=== PATIENT | female | born 1950 | race Hispanic/Latino ===

== ENCOUNTER 2017-08-24 19:10 | Inpatient (IN) | payer MEDICARE ==
[2017-08-24 20:02] LABS: BASO # 0.1 K/uL (0.0-0.2); BASO % 1.2 % (0.0-2.0); EOS # 0.5 K/uL (0.0-0.7); EOS % 4.3 % (0.0-4.0); HEMOGLOBIN 12.2 g/dL (11.0-16.0); LYMPH # 3.8 K/uL (1.0-4.3); LYMPH % 30.4 % (20.0-40.0); MEAN CELL VOLUME 84.8 fL (81.0-99.0); MEAN CORPUSCULAR HEMOGLOBIN 28.3 pg (27.0-31.0); MEAN CORPUSCULAR HGB CONC 33.4 g/dL (33.0-37.0); MEAN PLATELET VOLUME 7.6 fL (7.2-11.7); MONO # 1.1 K/uL (0.0-0.8); MONO % 8.5 % (0.0-10.0); NEUT % 55.6 % (50.0-75.0); RBC 4.3 Mil/uL (3.80-5.20); WHITE BLOOD COUNT 12.5 K/uL (4.8-10.8)
--- NOTE | 2017-08-24 20:03 | C.PDOC ---
History Of Present Illness Patient is a 67 y/o female who presents to the ED with a complaint of left leg swelling since Friday. Patient denies trauma, fever, CP, or SOB. Admits to recent travel this month to [place]. No other physical complaints at this time. Time Seen by Provider: 08/24/17 19:32 Chief Complaint (Nursing): Lower Extremity Problem/Injury History Per: Patient History/Exam Limitations: no limitations Onset/Duration Of Symptoms: Days (since Friday) Current Symptoms Are (Timing): Still Present Recent travel outside of the [place]: Yes ([place] earlier this month) Past Medical History Reviewed: Historical Data, Nursing Documentation, Vital Signs Vital Signs: Last Vital Signs Temp 98.4 F 08/28/17 12:00 Pulse 77 08/28/17 15:21 Resp 12 08/28/17 15:21 BP 149/49 L 08/28/17 15:21 Pulse Ox 96 08/28/17 12:00 - Medical History PMH: No Chronic Diseases Surgical History: No Surg Hx Family History: States: No Known Family Hx - Social History Hx Tobacco Use: No Hx Alcohol Use: No Hx Substance Use: No - Immunization History Hx Tetanus Toxoid Vaccination: No Hx Influenza Vaccination: No Hx Pneumococcal Vaccination: No Review Of Systems Except As Marked, All Systems Reviewed And Found Negative. Cardiovascular: Positive for: Edema (left leg swelling) Physical Exam - Physical Exam Appears: Well, Non-toxic, No Acute Distress Skin: Normal Color, Warm, Dry Head: Atraumatic, Normacephalic Oral Mucosa: Moist Cardiovascular: Rhythm Regular, No Murmur Respiratory: Normal Breath Sounds, No Rales, No Rhonchi, No Wheezing Gastrointestinal/Abdominal: Soft, No Tenderness Extremity: Swelling (left leg swelling) Neurological/Psych: Oriented x3, Normal Speech, Normal Cognition ED Course And Treatment - Laboratory Results Result Diagrams: 08/28/17 06:36 08/28/17 06:36 O2 Sat by Pulse Oximetry: 98 (room air ) Pulse Ox Interpretation: Normal Medical Decision Making Medical Decision Making: Plan: * blood work Patient admitted to hospitalist Dr. Concepcion at 9:40pm. Disposition - Disposition Disposition: HOSPITALIZED Disposition Time: 09:00 Condition: STABLE - Clinical Impression Clinical Impression: Left leg DVT - Scribe Statement The provider has reviewed the documentation as recorded by the Scribe Joleen Aguila All medical record entries made by the Zarinaibe were at my direction and personally dictated by me. I have reviewed the chart and agree that the record accurately reflects my personal performance of the history, physical exam, medical decision making, and the department course for this patient. I have also personally directed, reviewed, and agree with the discharge instructions and disposition. Decision To Admit - Pt Status Changed To: Hospital Disposition Of: Inpatient - Admit Certification Admit to Inpatient:: After my assessment, the patient will require hospitalization for at least two midnights. This is because of the severity of symptoms shown, intensity of services needed, and/or the medical risk in this patient being treated as an outpatient. - InPatient: Physician Admission Certification: I certify that this patient requires 2 or more midnights of care for the following reason:: large dvt needs thrombolysis - . Bed Request Type: Regular Admitting Physician: Denilson Concepcion Patient Diagnosis: Deep venous thrombosis of lower extremity, Left leg DVT
[2017-08-24 20:17] LABS: ALBUMIN 3.4 g/dL (3.5-5.0); ALT/SGPT 17 U/L (9-52); AST/SGOT 23 U/L (14-36); BLOOD UREA NITROGEN 24 mg/dL (7-17); CALCIUM 8.2 mg/dl (8.6-10.4); GFR AFRICAN-AMERICAN > 60; GFR NON-AFRICAN AMERICAN > 60
[2017-08-24 20:19] LABS: ALB/GLOB RATIO 1.1 (1.0-2.1)
[2017-08-24 20:28] LABS: PROTHROMBIN TIME 11.6 SECONDS (9.7-12.2)
[2017-08-24] MEDS ORDERED: Enoxaparin 150 mg Syringe SC STA (21:29)
[2017-08-24] MEDS ORDERED: cefTRIAXone 2 GM in Sodium Chloride 0.9% 100 ML IVPB STA (21:36)
[2017-08-24] MEDS ORDERED: Enoxaparin 100 mg Syringe ONE (22:01)
[2017-08-24] MEDS ORDERED: Enoxaparin 30 mg Syringe ONE (22:02)
--- NOTE | 2017-08-24 22:03 | CP.PCM.HP ---
<Dora Johnson - Last Filed: 08/25/17 04:02> History of Present Illness - History of Present Illness History of Present Illness: Medicine Note for Hospital Service CC: left leg pain x 1 week HPI: 67 yo Female with no significant PMHx presents to the ED with left leg pain x 1 week. Patient reports traveling to [place] August 18 and returned the . 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 She started to experience the left leg pain a day or so after her initial flight. The redness and swelling of her leg started to increase the up the leg, and became worse when she returned from [place]. She would take motrin as needed for pain, but the swelling and redness of her leg did not resolve. Denied fever, chills, headache, chest pain, SOB, abdominal pain, n/v/d/c, or urinary symptoms. 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 FHx: Brother - CAD, Mother - of colon cancer, father - bone cancer PMD: has not seen one >30 years Present on Admission - Present on Admission Any Indicators Present on Admission: No History of DVT/PE: No Past Patient History - Past Social History Smoking Status: Light Smoker < 10 Cigarettes Daily - PSYCHIATRIC Hx Substance Use: No - ANESTHESIA Hx Anesthesia: No Meds Allergies/Adverse Reactions: Allergies Allergy/AdvReac Type Severity Reaction Status Date / Time No Known Allergies Allergy Unverified 08/24/17 19:19 Physical Exam - Constitutional Appears: No Acute Distress - Head Exam Head Exam: NORMAL INSPECTION, NORMOCEPHALIC - Eye Exam Eye Exam: EOMI, Normal appearance, PERRL Pupil Exam: NORMAL ACCOMODATION - ENT Exam ENT Exam: Mucous Membranes Moist, Normal Exam - Respiratory Exam Respiratory Exam: Clear to Auscultation Bilateral, NORMAL BREATHING PATTERN. absent: Decreased Breath Sounds, Wheezes - Cardiovascular Exam Cardiovascular Exam: Tachycardia - GI/Abdominal Exam GI & Abdominal Exam: Normal Bowel Sounds, Soft. absent: Distended, Tenderness - Extremities Exam Extremities exam: Positive for: calf tenderness, pedal edema, tenderness (TTP left calf ), pedal pulses present Additional comments: left leg erythema all up until the inguinal fold medial > lateral, +1 pitting edema Results - Vital Signs Recent Vital Signs: Last Vital Signs Temp 98.1 F 08/24/17 19:16 Pulse 109 H 08/24/17 19:16 Resp 20 08/24/17 19:16 BP 152/90 H 08/24/17 19:16 Pulse Ox 98 08/24/17 21:40 - Labs Result Diagrams: 08/24/17 19:51 08/24/17 19:51 Labs: Laboratory Results - last 24 hr 08/24/17 08/24/17 08/24/17 19:51 19:51 19:51 WBC 12.5 H RBC 4.30 Hgb 12.2 Hct 36.5 MCV 84.8 MCH 28.3 MCHC 33.4 RDW 14.0 Plt Count 325 MPV 7.6 Neut % (Auto) 55.6 Lymph % (Auto) 30.4 [place] % (Auto) 8.5 Eos % (Auto) 4.3 H Baso % (Auto) 1.2 Neut # 7.0 Lymph # 3.8 [place] # 1.1 H Eos # 0.5 Baso # 0.1 PT 11.6 INR 1.0 APTT 27 D-Dimer, Quantitative 6329 H Sodium 135 Potassium 4.3 Chloride 98 Carbon Dioxide 29 Anion Gap 11 BUN 24 H Creatinine 0.7 Est GFR ( Amer) > 60 Est GFR (Non-Af Amer) > 60 Random Glucose 124 H Calcium 8.2 L Total Bilirubin 0.7 AST 23 ALT 17 Alkaline Phosphatase 64 Total Protein 6.6 Albumin 3.4 L Globulin 3.2 Albumin/Globulin Ratio 1.1 Assessment & Plan - Assessment and Plan (Free Text) Assessment: 67 yo Female with no significant PMHx presents to the ED with left leg pain x 1 week. Found to have a left leg DVT and Left Pulm artery PE. Plan: Left LLE DVT Cellulitis - less likely US performed with ED US - seen by ER doc. Pending LE Dopplers D -dimer: 6329 IR Consulted for EKOS procedure Received therapeutic lovenox that was switched to a Heparin Drip due to newly diagnosed PE Left Pulmonary Artery PE D -dimer: 6329 CTA: Emboli in lower lobe branches of the left pulmonary artery. There is a large heterogeneous partially calcified mass in the right superior mediastinum measuring approximately 4.2 x 7.7 cm in axial dimensions possibly thyroid in origin. This may be a known finding. There are prominent lymph nodes in the anterior mediastinum measuring up to 3cm in diameter. Started on Heparin Drip Mediastinum Mass Concern for Malignancy CTA: There is a large heterogeneous partially calcified mass in the right superior mediastinum measuring approximately 4.2 x 7.7 cm in axial dimensions possibly thyroid in origin. This may be a known finding. There are prominent lymph nodes in the anterior mediastinum measuring up to 3cm in diameter. IR Consulted for possible biopsy Prophylactic Measures GI PPX: Pepcid BID DVT PPX: SCDs c/i, on Heparin drip DW Dr. Concepcion, Dora Johnson DO, PGY-1 <Denilson Concepcion P - Last Filed: 08/25/17 06:59> Results - Vital Signs Recent Vital Signs: Last Vital Signs Temp 97.9 F 08/25/17 04:30 Pulse 81 08/25/17 04:30 Resp 20 08/25/17 04:30 BP 110/66 08/25/17 04:30 Pulse Ox 94 L 08/25/17 04:30 - Labs Result Diagrams: 08/24/17 19:51 08/24/17 19:51 Labs: Laboratory Results - last 24 hr 08/24/17 08/24/17 08/24/17 19:51 19:51 19:51 WBC 12.5 H RBC 4.30 Hgb 12.2 Hct 36.5 MCV 84.8 MCH 28.3 MCHC 33.4 RDW 14.0 Plt Count 325 MPV 7.6 Neut % (Auto) 55.6 Lymph % (Auto) 30.4 [place] % (Auto) 8.5 Eos % (Auto) 4.3 H Baso % (Auto) 1.2 Neut # 7.0 Lymph # 3.8 [place] # 1.1 H Eos # 0.5 Baso # 0.1 PT 11.6 INR 1.0 APTT 27 D-Dimer, Quantitative 6329 H Sodium 135 Potassium 4.3 Chloride 98 Carbon Dioxide 29 Anion Gap 11 BUN 24 H Creatinine 0.7 Est GFR ( Amer) > 60 Est GFR (Non-Af Amer) > 60 Random Glucose 124 H Calcium 8.2 L Total Bilirubin 0.7 AST 23 ALT 17 Alkaline Phosphatase 64 Total Protein 6.6 Albumin 3.4 L Globulin 3.2 Albumin/Globulin Ratio 1.1 Attending/Attestation - Attestation I have personally seen and examined this patient.: Yes I have fully participated in the care of the patient.: Yes I have reviewed all pertinent clinical information: Yes Notes (Text): Assessment * Presentation due to left leg swelling, pain, sob, with h/o 3-4 hrs of flight, preliminary eval in ER with USG consistent with common femoral clot, but also suspicious from clinical history * W/u for sob showed left segmental branches pe, also 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 * Hematology Oncology consult * Counselled about tobacco abuse * See orders for detail.
[2017-08-24] MEDS ORDERED: Vancomycin 1 gm/NS 200 ml 1 GM/200 ML BAG IVPB SCH (22:15)
[2017-08-25] MEDS ORDERED: Iodixanol 320 mg/ml 150 ml Bottle IV ONE (00:24)
--- NOTE | 2017-08-25 01:17 | CT ---
EXAM: CT Angiography Chest With Intravenous Contrast EXAM DATE/TIME: 08/24/2017 11:30 PM CLINICAL HISTORY: 67 years old, female; Signs and symptoms; Other: Dvt; Additional info: Dvt, R/O pe TECHNIQUE: Axial computed tomographic angiography images of the chest with intravenous contrast using pulmonary embolism protocol. All CT scans at this facility use one or more dose reduction techniques, viz.: automated exposure control; ma/kV adjustment per patient size (including targeted exams where dose is matched to indication; i.e. head); or iterative reconstruction technique. MIP reconstructed images were created and reviewed. Coronal and sagittal reformatted images were created and reviewed. CONTRAST: 100 mL of [id number] administered intravenously. COMPARISON: No relevant prior studies available. FINDINGS: There are emboli in lower lobe branches of the left pulmonary artery images 123 -130 series 2, coronal images 90 through 92. There is a large heterogeneous partially calcified mass in the right superior mediastinum measuring approximately 4.2 x 7.7 cm in axial dimensions possibly thyroid in origin. This may be a known finding. I have requested prior images for correlation if available. There are prominent lymph nodes in the anterior mediastinum measuring up to 3 cm in diameter. No aortic dissection or aneurysm. No pleural or pericardial effussions. No pulmonary consolidation. Anterior osteophyte formation is present in the vertebral body. Chronic appearing deformities of the right posterior fourth through eighth ribs. IMPRESSION: Emboli in lower lobe branches of the left pulmonary artery. Large anterior superior mediastinal mass as discussed above.
--- NOTE | 2017-08-25 01:31 | CT ---
EXAM: CT Abdomen and Pelvis With Intravenous Contrast EXAM DATE/TIME: 08/24/2017 11:30 PM CLINICAL HISTORY: 67 years old, female; Signs and symptoms; Mass, lump, or swelling and other: Suspected dvt; Generalized TECHNIQUE: Axial computed tomography images of the abdomen and pelvis with intravenous contrast. All CT scans at this facility use one or more dose reduction techniques, viz.: automated exposure control; ma/kV adjustment per patient size (including targeted exams where dose is matched to indication; i.e. head); or iterative reconstruction technique. Coronal and sagittal reformatted images were created and reviewed. CONTRAST: 100 mL of [id number] administered intravenously. COMPARISON: No relevant prior studies available. FINDINGS: The liver is prominent. Please see chest CT report for description of left hepatic lesion for which further evaluation is warranted (abdomen pelvis images are submitted in the delayed phase w contrast in the renal collecting system whereas the chest CT images are in the arterial phase). Cholelithiasis without evidence of cholecystitis. The spleen and pancreas are grossly normal. There is a focal saccular dilatation of the infrarenal abdominal aorta measuring 3.7 cm in diameter. No periaortic fluid. Atherosclerotic calcifications are present. There is subcutaneous edema in the left posterior-lateral pelvis with overlying skin thickening. The edema extends inferiorly to the left lower extremity. Collateral vessels and lymph nodes are noted in the left groin. The patient reportedly has a known DVT. No prior imaging was provided for correlation or for confirmation of this finding. There is suggestion of faint low attenuation in the distal superficial femoral vein possibly representing the patient's known thrombus. The bowel appears normal Partially calcified uterine fibroid. IMPRESSION: Cholelithiasis. Please see chest CT report for discussion of left hepatic lesion. Infrarenal aortic aneurysm without periaortic fluid. Subcutaneous edema extending from the left flank region down to the distal thigh likely related to the patient's known DVT. Collateral vasculature and lymph nodes in the left groin.
[2017-08-25] MEDS ORDERED: Heparin25000 units/250ml 1/2NS 25,000 UNITS/250 ML BAG IV PRN ×3 (07:00→16:33)
[2017-08-25 08:02] LABS: BASO # 0.1 K/uL (0.0-0.2); BASO % 0.8 % (0.0-2.0); EOS # 0.5 K/uL (0.0-0.7); EOS % 4.4 % (0.0-4.0); HEMOGLOBIN 11.4 g/dL (11.0-16.0); LYMPH # 3.2 K/uL (1.0-4.3); LYMPH % 30.6 % (20.0-40.0); MEAN CELL VOLUME 84.8 fL (81.0-99.0); MEAN CORPUSCULAR HEMOGLOBIN 29.3 pg (27.0-31.0); MEAN CORPUSCULAR HGB CONC 34.5 g/dL (33.0-37.0); MEAN PLATELET VOLUME 7.9 fL (7.2-11.7); MONO % 9.5 % (0.0-10.0); NEUT # 5.8 K/uL (1.8-7.0); NEUT % 54.7 % (50.0-75.0); RBC 3.9 Mil/uL (3.80-5.20); RED CELL DISTRIBUTION WIDTH 13.7 % (11.5-14.5); WHITE BLOOD COUNT 10.6 K/uL (4.8-10.8)
[2017-08-25 08:21] LABS: HDL CHOLESTEROL 26 mg/dL (30-70)
[2017-08-25 08:32] LABS: LDL CHOLESTEROL 68 mg/dL (0-129)
--- NOTE | 2017-08-25 08:58 | CP.PCM.PN ---
<Veronica Linda JeriZo - Last Filed: 08/25/17 15:04> Subjective - Date & Time of Evaluation Date of Evaluation: 08/25/17 Time of Evaluation: 07:00 - Subjective Subjective: Medicine Progress Note: Patient was seen and examined at bedside in the AM. Patient states she was feeling a bit nervous to everything that was happening as she does not like being in the hospital. She states she has a chronic cough because she is smoker and smokes about 6 cigarettes per day. She states since her admission she has not had the feeling to smoke and she would like to try and continue this whenever she is discharged as well. She denies chest pain, difficulty breathing, palpitations, leg pain, fever, nausea, vomiting, diarrhea or constipation. Objective - Vital Signs/Intake and Output Vital Signs (last 24 hours): Temp Pulse Resp BP Pulse Ox 97.9 F 80 20 110/66 94 L 08/25/17 04:30 08/25/17 08:30 08/25/17 04:30 08/25/17 04:30 08/25/17 04:30 - Medications Medications: Current Medications Famotidine (Pepcid) 20 mg PO BID [facility]ENN[facility]ER Vancomycin/Sodium Chloride (Vancomycin 1 Gm/Ns 200 Ml) 1 gm in 200 mls @ 200 mls/hr IVPB STAT JENNIFER Stop: 08/29/17 22:01 Last Admin: 08/25/17 02:11 Dose: 200 mls/hr Heparin Sodium/Sodium Chloride (Heparin 16198 Units/250ml 1/2 Normal Saline) 25 ,000 units in 250 mls @ 19.187 mls/hr IV .Q13H2M PRN; Protocol; 18 UNITS/KG/HR PRN Reason: PROTOCOL Last Admin: 08/25/17 03:56 Dose: 18 units/kg/hr, 19.187 mls/hr Pneumococcal Polyvalent Vaccine (Pneumovax 23 Vaccine) 0.5 ml IM .ONCE ONE Stop: 08/28/17 10:01 - Labs Labs: 08/25/17 07:50 08/24/17 19:51 PT 11.6 SECONDS (9.7-12.2) 08/24/17 19:51 INR 1.0 08/24/17 19:51 APTT 27 SECONDS (21-34) 08/24/17 19:51 - Constitutional Appears: No Acute Distress - Head Exam Head Exam: ATRAUMATIC, NORMAL INSPECTION - Eye Exam Eye Exam: EOMI, Normal appearance - ENT Exam ENT Exam: Mucous Membranes Moist - Respiratory Exam Respiratory Exam: Clear to Ausculation Bilateral, NORMAL BREATHING PATTERN - Cardiovascular Exam Cardiovascular Exam: REGULAR RHYTHM, +S1, +S2 - GI/Abdominal Exam GI & Abdominal Exam: Soft, Normal Bowel Sounds. absent: Tenderness - Extremities Exam Extremities Exam: Pedal Edema. absent: Calf Tenderness, Tenderness - Neurological Exam Neurological Exam: Alert, Awake, Oriented x3 - Psychiatric Exam Psychiatric exam: Anxious - Skin Skin Exam: Dry, Intact, Normal Color, Warm Assessment and Plan - Assessment and Plan (Free Text) Assessment: 67 yo Female with no significant PMHx presents to the ED with left leg pain x 1 week. Found to have a left leg DVT and Left Pulm artery PE. 1.) Left LLE DVT - Bilateral Lower Extremity Doppler: Right: No evidence of deep or superficial vein thrombosis of the right common femoral, femoral, popliteal and great saphenous veins. Left: Totally occluding acute deep vein thrombosis of the left common femoral, extending into the saphenofemoral junction with severe reduction of venous return. Totally occluding acute deep vein thrombosis of the left proximal femoral, popliteal and gastrocnemius veins. Superficial phlebitis of the left upper great saphenous vein. - D -dimer: 6329 - IR Consulted: Dr. Hunt --> help appreciated - EKOS lysis procedure 08/25/17 - Placement of infrarenal IVC filter 08/25/17 - Received therapeutic lovenox that was then switched to a Heparin Drip due to newly diagnosed PE 2.) Left Pulmonary Artery PE - D -dimer: 6329 - CTA: Emboli in lower lobe branches of the left pulmonary artery. There is a large heterogeneous partially calcified mass in the right superior mediastinum measuring approximately 4.2 x 7.7 cm in axial dimensions possibly thyroid in origin. This may be a known finding. There are prominent lymph nodes in the anterior mediastinum measuring up to 3cm in diameter. - Started on Heparin Drip 3.) Mediastinum Mass Concern for Malignancy - CTA: There is a large heterogeneous partially calcified mass in the right superior mediastinum measuring approximately 4.2 x 7.7 cm in axial dimensions possibly thyroid in origin. This may be a known finding. There are prominent lymph nodes in the anterior mediastinum measuring up to 3cm in diameter. - Neck Soft Tissue X-ray: unremarkable radiographs of the soft tissues of the neck - IR Consulted: Dr. Hunt --> help appreciated - For possible biopsy 4.) Prophylaxis - GI PPX: Pepcid BID - DVT PPX: SCDs c/i, on Heparin drip - Patient was transferred to ICU for observation s/p EKOS procedure Case discussed with Dr. David Linda PGY-1 <Carlos Hernandez - Last Filed: 08/25/17 18:53> Objective - Vital Signs/Intake and Output Vital Signs (last 24 hours): Temp Pulse Resp BP Pulse Ox 98.3 F 86 14 147/75 93 L 08/25/17 15:00 08/25/17 15:00 08/25/17 15:00 08/25/17 15:00 08/25/17 07:30 Intake and Output: 08/25/17 08/25/17 06:59 18:59 Intake Total 804 Output Total 415 Balance 389 - Medications Medications: Current Medications Famotidine (Pepcid) 20 mg PO BID [facility] Last Admin: 08/25/17 18:47 Dose: 20 mg Vancomycin/Sodium Chloride (Vancomycin 1 Gm/Ns 200 Ml) 1 gm in 200 mls @ 200 mls/hr IVPB STAT JENNIFER Stop: 08/29/17 22:01 Last Admin: 08/25/17 02:11 Dose: 200 mls/hr Alteplase, Recombinant 10 mg/ (Sodium Chloride) 250 mls @ 25 mls/hr IV ONCE ONE Stop: 08/25/17 20:29 Last Admin: 08/25/17 12:05 Dose: 25 mls/hr Sodium Chloride (Sodium Chloride 0.9%) 1,000 mls @ 35 mls/hr IV .Q24H JENNIFER Last Admin: 08/25/17 12:05 Dose: 35 mls/hr Heparin Sodium/Sodium Chloride (Heparin 09057 Units/250ml 1/2 Normal Saline) 25 ,000 units in 250 mls @ 5.33 mls/hr IV .Q24H PRN; Protocol; 5 UNITS/KG/HR PRN Reason: PROTOCOL Last Admin: 08/25/17 12:05 Dose: 5 units/kg/hr, 5.33 mls/hr Heparin Sodium/Sodium Chloride (Heparin 26245 Units/250ml 1/2 Normal Saline) 25 ,000 units in 250 mls @ 19.187 mls/hr IV .Q13H2M PRN; Protocol; 18 UNITS/KG/HR PRN Reason: PROTOCOL Last Admin: 08/25/17 16:41 Dose: 18 units/kg/hr, 19.187 mls/hr Pneumococcal Polyvalent Vaccine (Pneumovax 23 Vaccine) 0.5 ml IM .ONCE ONE Stop: 08/28/17 10:01 - Labs Labs: 08/25/17 07:50 08/24/17 19:51 PT 12.1 SECONDS (9.7-12.2) 08/25/17 16:10 INR 1.1 08/25/17 16:10 APTT 69 SECONDS (21-34) H D 08/25/17 16:10 Attending/Attestation - Attestation I have personally seen and examined this patient.: Yes I have fully participated in the care of the patient.: Yes I have reviewed all pertinent clinical information, including history, physical exam and plan: Yes Notes (Text): Patient was seen and examined this morning d/w Dr Concepcion case discussed with the resident I agree with the assessment and the documentation of the resident
--- NOTE | 2017-08-25 09:49 | VASCLAB ---
PROCEDURE: Bilateral Lower Extremity Venous Duplex Exam. HISTORY: DVT in left leg PRIORS: None. TECHNIQUE: Bilateral common femoral, femoral, popliteal and posterior tibial, peroneal and great saphenous veins were evaluated. Flow was assessed with color Doppler, compressibility, assessment of phasic flow and augmentation response. Report prepared by SON Dorsey FINDINGS: RIGHT: 1. Common Femoral Vein: 1.1. Compressibility - Fully compressible: Thrombus - None : Flow - Phasic: Augmentation -Normal: Reflux - None. 2. Femoral Vein: 2.1. Compressibility - Fully compressible: Thrombus - None : Flow - Phasic: Augmentation -Normal: Reflux - None. 3. Popliteal Vein: 3.1. Compressibility - Fully compressible: Thrombus - None : Flow - Phasic: Augmentation -Normal: Reflux - None. 4. Posterior Tibial Vein: 5. Peroneal Vein: 6. Great Saphenous Vein: 6.1. Compressibility - Fully compressible: Thrombus - None: Flow - Phasic: Augmentation - Normal: Reflux - None. LEFT: 1. Common Femoral Vein: 1.1. Compressibility - Incompressible: Thrombus - Acute: Flow - Absent : 2. Femoral Vein: (proximal view only) 2.1. Compressibility - Incompressible: Thrombus - Acute: Flow - Absent : 3. Popliteal Vein: 3.1. Compressibility - Incompressible: Thrombus - Acute : Flow - Absent : 4. Posterior Tibial Vein: 5. Peroneal Vein: 6. Great Saphenous Vein: 6.1. Compressibility - Incompressible: Thrombus - Acute: Flow - Absent : (non compressible at thigh level) OTHER FINDINGS: Right:Unable to clearly visualize calf veins, due to swelling. Left: Unable to clearly visualize the mid and distal femoral, and the calf veins due to severe edema. IMPRESSION: Right: No evidence of deep or superficial vein thrombosis of the right common femoral, femoral, popliteal and great saphenous veins. Left: 1. Totally occluding acute deep vein thrombosis of the left common femoral, extending into the saphenofemoral junction, with severe reduction of the venous return. 2. Totally occluding acute deep vein thrombosis of the left proximal femoral, popliteal and gastrocnemius veins. 3. Superficial phlebitis of the left upper great saphenous vein. Findings were reported by the vascular radiologist, serena Mueller at 9:12 a.m.
--- NOTE | 2017-08-25 10:01 | CT ---
PROCEDURE: CT HEAD WITHOUT CONTRAST. HISTORY: mediastinal mass COMPARISON: None available. TECHNIQUE: Axial computed tomography images were obtained through the head/brain without intravenous contrast. Radiation dose: Total exam DLP = 1804.28 mGy-cm. This CT exam was performed using one or more of the following dose reduction techniques: Automated exposure control, adjustment of the mA and/or kV according to patient size, and/or use of iterative reconstruction technique. FINDINGS: HEMORRHAGE: No intracranial hemorrhage. BRAIN: No mass effect or edema. No atrophy or chronic microvascular ischemic changes. VENTRICLES: Unremarkable. No hydrocephalus. CALVARIUM: Unremarkable. PARANASAL SINUSES: Unremarkable as visualized. No significant inflammatory changes. MASTOID AIR CELLS: Unremarkable as visualized. No inflammatory changes. OTHER FINDINGS: None. IMPRESSION: Normal CT of the Head. No intracranial mass, hemorrhage or evidence of acute infarct.
[2017-08-25 10:12] LABS: INR 1.1; PROTHROMBIN TIME 12.3 SECONDS (9.7-12.2)
[2017-08-25] MEDS ORDERED: Heparin25000 units/250ml 1/2NS 25,000 UNITS/250 ML BAG IV ONE (10:52)
--- NOTE | 2017-08-25 11:55 | PCM.SURG1 ---
Surgeon's Initial Post Op Note - Surgeon's Notes Surgeon: Clarence Hunt MD Pediatric Immunologist: NONE Type of Anesthesia: Local Pre-Operative Diagnosis: Left iliofemoral DVT, PE, mediastinal mass Operative Findings: Left popliteal venogram showed extensive thrombus in the femoral vein, common femoral vein, Iliac vein. IVC has no thrombus. Post-Operative Diagnosis: Left iliofemoral DVT, PE, mediastinal mass Operation Performed: IVC filter placement. Catheter directed thrombolysis of left femoral vein Specimen/Specimens Removed: NONE Estimated Blood Loss: EBL {In ML}: 5 Blood Products Given: N/A Drains Used: No Drains Post-Op Condition: Fair Date of Surgery/Procedure: 08/25/17 Time of Surgery/Procedure: 11:15
[2017-08-25] MEDS: Sodium Chloride 0.9% 1,000 ML IV SCH (12:05)
--- NOTE | 2017-08-25 12:11 | CP.PCM.CON ---
History of Present Illness - History of Present Illness History of Present Illness: CCU Consult Note HPI: Patient is a 67WF who presented to the ED Last night with a CC of L. Leg pain for 1 week. She had previously flown from [place] 1 week ago when the pain began. She denies any SOB. 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 The swelling has continued to extend up the leg as well as associate redness. She tried taking motrin for the pain but nothing makes it better or worse. She denies any neck pain. A CTA done in the ED showed a mediastinal mass as well as L. pulm a. emboli. The patient was taken for EKOS by IR with catheter directed tpa. She was then transferred to the ICU for close monitoring. 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, denies alcohol or illegal drug use Meds: None Allergies: None Review of Systems - Review of Systems Review of Systems: per hpi Past Patient History - Past Medical History & Family History Past Medical History?: No - Past Social History Smoking Status: Light Smoker < 10 Cigarettes Daily - MUSCULOSKELETAL/RHEUMATOLOGICAL Hx Falls: Yes (08/16/17 DUE TO DIZZINESS) - PSYCHIATRIC Hx Substance Use: No - SURGICAL HISTORY Hx Surgeries: No - ANESTHESIA Hx Anesthesia: No Meds Allergies/Adverse Reactions: Allergies Allergy/AdvReac Type Severity Reaction Status Date / Time No Known Allergies Allergy Unverified 08/24/17 19:19 - Medications Medications: Current Medications Famotidine (Pepcid) 20 mg PO BID [facility], [facility] Last Admin: 08/25/17 09:57 Dose: 20 mg Vancomycin/Sodium Chloride (Vancomycin 1 Gm/Ns 200 Ml) 1 gm in 200 mls @ 200 mls/hr IVPB STAT JENNIFER Stop: 08/29/17 22:01 Last Admin: 08/25/17 02:11 Dose: 200 mls/hr Heparin Sodium/Sodium Chloride (Heparin 04786 Units/250ml 1/2 Normal Saline) 25 ,000 units in 250 mls @ 19.187 mls/hr IV .Q13H2M PRN; Protocol; 18 UNITS/KG/HR PRN Reason: PROTOCOL Last Admin: 08/25/17 03:56 Dose: 18 units/kg/hr, 19.187 mls/hr Alteplase, Recombinant 10 mg/ (Sodium Chloride) 250 mls @ 25 mls/hr IV ONCE ONE Stop: 08/25/17 20:29 Sodium Chloride (Sodium Chloride 0.9%) 1,000 mls @ 35 mls/hr IV .Q24H JENNIFER Heparin Sodium/Sodium Chloride (Heparin 53731 Units/250ml 1/2 Normal Saline) 25 ,000 units in 250 mls @ 5.33 mls/hr IV .Q24H PRN; Protocol; 5 UNITS/KG/HR PRN Reason: PROTOCOL Pneumococcal Polyvalent Vaccine (Pneumovax 23 Vaccine) 0.5 ml IM .ONCE ONE Stop: 08/28/17 10:01 Physical Exam - Constitutional Appears: Well, Non-toxic - Head Exam Head Exam: ATRAUMATIC, NORMAL INSPECTION, NORMOCEPHALIC - Eye Exam Eye Exam: EOMI - ENT Exam ENT Exam: Mucous Membranes Moist - Neck Exam Additional comments: fullness on the right supraclavicular - Respiratory Exam Respiratory Exam: Wheezes - Cardiovascular Exam Cardiovascular Exam: REGULAR RHYTHM - GI/Abdominal Exam GI & Abdominal Exam: Normal Bowel Sounds, Soft. absent: Distended, Tenderness - Extremities Exam Additional comments: swelling of the LLE - Skin Skin Exam: Dry, Intact, Normal Color Results - Vital Signs Recent Vital Signs: Last Vital Signs Temp 97.6 F 08/25/17 07:30 Pulse 80 08/25/17 08:30 Resp 20 08/25/17 07:30 BP 147/85 08/25/17 07:30 Pulse Ox 93 L 08/25/17 07:30 - Labs Result Diagrams: 08/25/17 07:50 08/24/17 19:51 Labs: Laboratory Results - last 24 hr 08/24/17 08/24/17 08/24/17 19:51 19:51 19:51 WBC 12.5 H RBC 4.30 Hgb 12.2 Hct 36.5 MCV 84.8 MCH 28.3 MCHC 33.4 RDW 14.0 Plt Count 325 MPV 7.6 Neut % (Auto) 55.6 Lymph % (Auto) 30.4 [place] % (Auto) 8.5 Eos % (Auto) 4.3 H Baso % (Auto) 1.2 Neut # 7.0 Lymph # 3.8 [place] # 1.1 H Eos # 0.5 Baso # 0.1 PT 11.6 INR 1.0 APTT 27 D-Dimer, Quantitative 6329 H Sodium 135 Potassium 4.3 Chloride 98 Carbon Dioxide 29 Anion Gap 11 BUN 24 H Creatinine 0.7 Est GFR ( Amer) > 60 Est GFR (Non-Af Amer) > 60 Random Glucose 124 H Hemoglobin A1c Calcium 8.2 L Total Bilirubin 0.7 AST 23 ALT 17 Alkaline Phosphatase 64 Total Protein 6.6 Albumin 3.4 L Globulin 3.2 Albumin/Globulin Ratio 1.1 Triglycerides Cholesterol LDL Cholesterol Direct HDL Cholesterol 08/25/17 08/25/17 08/25/17 07:50 07:50 07:50 WBC 10.6 RBC 3.90 Hgb 11.4 Hct 33.1 L MCV 84.8 MCH 29.3 MCHC 34.5 RDW 13.7 Plt Count 306 MPV 7.9 Neut % (Auto) 54.7 Lymph % (Auto) 30.6 [place] % (Auto) 9.5 Eos % (Auto) 4.4 H Baso % (Auto) 0.8 Neut # 5.8 Lymph # 3.2 [place] # 1.0 H Eos # 0.5 Baso # 0.1 PT INR APTT D-Dimer, Quantitative Sodium Potassium Chloride Carbon Dioxide Anion Gap BUN Creatinine Est GFR ( Amer) Est GFR (Non-Af Amer) Random Glucose Hemoglobin A1c 6.1 Calcium Total Bilirubin AST ALT Alkaline Phosphatase Total Protein Albumin Globulin Albumin/Globulin Ratio Triglycerides 68 Cholesterol 107 LDL Cholesterol Direct 68 HDL Cholesterol 26 L 08/25/17 10:01 WBC RBC Hgb Hct MCV MCH MCHC RDW Plt Count MPV Neut % (Auto) Lymph % (Auto) [place] % (Auto) Eos % (Auto) Baso % (Auto) Neut # Lymph # [place] # Eos # Baso # PT 12.3 H INR 1.1 APTT 92 H D D-Dimer, Quantitative Sodium Potassium Chloride Carbon Dioxide Anion Gap BUN Creatinine Est GFR ( Amer) Est GFR (Non-Af Amer) Random Glucose Hemoglobin A1c Calcium Total Bilirubin AST ALT Alkaline Phosphatase Total Protein Albumin Globulin Albumin/Globulin Ratio Triglycerides Cholesterol LDL Cholesterol Direct HDL Cholesterol Assessment & Plan - Assessment and Plan (Free Text) Assessment: 67WF s/p EKOS POD 0 for PE in L. Pulm a. Plan: Neuro A/O x3 Cardio CTA shows R. Mediastinal Mass, consider Bx PE in L. Pulm a. s/p EKOS POD 0 LE US - Totally occlusive thrombus in L. common fem, L. prox fem, popliteal and gastroc vv. heparin drip monitor for signs of bleeding Pulm: PE in L. Pulm a. s/p EKOS POD 0 - monitor for signs of bleeding Renal: BUN: Cr 24/0.7 [place] MSK: LLE swollen LE US - Totally occlusive thrombus in L. common fem, L. prox fem, popliteal and gastroc vv. PPx: Pepcid Heparin drip
--- NOTE | 2017-08-25 13:52 | RAD ---
PROCEDURE: Radiographs of the neck (soft tissue). HISTORY: mediastinal mass COMPARISON: 2017. CT thorax documenting superior mediastinal mass TECHNIQUE: Frontal and Lateral Radiographs of the neck, optimized for soft tissue visualization. FINDINGS: SOFT TISSUES: Unremarkable. No radiopaque foreign body seen. CERVICAL SPINE: Grossly unremarkable. OTHER FINDINGS: Soft tissue mass in the superior mediastinum identified displacing the trachea to the left. This may represent intrathoracic extension of thyroid a finding which could be confirmed with thyroid ultrasound. IMPRESSION: Unremarkable radiographs of the soft tissues of the neck.
--- NOTE | 2017-08-25 14:00 | SPECPROC ---
PROCEDURE: Date of procedure: 08/25/2017 Procedure: 1. Ultrasound guidance for vascular access, CPT 78078 2. Right lower extremity venogram, inferior venacavagram. 3. Placement of a thrombolysis catheter within the right popliteal vein extending into the right common iliac vein for catheter directed thrombolysis, CPT 93515 Medications: 9 cc 1 % lidocaine Contrast: 100 cubic centimeters Visipaque 320, EBL: 10 milliliters Fluoro time: 0.5 minutes Radiation: 547 mGy HISTORY: Venous thromboembolism left lower extremity with severe leg swelling, pulmonary embolism. TECHNIQUE: Following informed consent and procedure time-out, the patient placed prone on the interventional table. Ultrasound showed a noncompressible left popliteal vein. The left lower extremity was prepped and draped in the usual sterile fashion. After the skin was anesthetized with 1 percent lidocaine, the popliteal vein was accessed with ultrasound guidance using micropuncture technique. A guidewire was advanced into the femoral vein. Small amount of dilute contrast injected through the 5 [place] sheath showed significant thrombus throughout the popliteal vein and femoral vein. Multiple collateral veins are present. The 5 [place] dilator was changed over a wire for a 6 [place] vascular sheath. 3 sheath, an angled catheter was advanced over the wire into the inferior vena cava. An inferior vena cavagram was performed. Inferior vena cavagram showed no IVC thrombus. Placement of a retrievable filter was then performed within the infrarenal IVC. The right superficial femoral venogram shows significant thrombus within the superficial femoral vein extending to the common femoral vein and external iliac and common iliac veins. Given the significant thrombus throughout the iliofemoral venous system, calcific thrombolysis was performed. A 40 centimeter treatment length equals catheter was placed extending from the popliteal vein to the proximal external iliac vein. The catheter was secured to patient's skin. The patient is transferred to the intensive care unit for tPA infusion and will return for followup venogram. IMPRESSION: 1. Left lower extremity venogram showed significant venous thromboembolism extending from left common iliac vein to the popliteal vein and in the tibial veins. 2. Placement of an Ekos lysis catheter for catheter directed thrombolysis extending from the popliteal vein to the external iliac vein. 3. Placement of retrievable filter within the infrarenal IVC. The filter was placed because of pulmonary embolism and discussion with intensive aspirate.
[2017-08-25 16:25] LABS: INR 1.1; PROTHROMBIN TIME 12.1 SECONDS (9.7-12.2)
[2017-08-26 07:10] LABS: BASO # 0.1 K/uL (0.0-0.2); BASO % 0.9 % (0.0-2.0); EOS # 0.3 K/uL (0.0-0.7); EOS % 2.6 % (0.0-4.0); HEMOGLOBIN 11.7 g/dL (11.0-16.0); LYMPH # 3.7 K/uL (1.0-4.3); LYMPH % 31.8 % (20.0-40.0); MEAN CELL VOLUME 85.7 fL (81.0-99.0); MEAN CORPUSCULAR HEMOGLOBIN 28.8 pg (27.0-31.0); MEAN CORPUSCULAR HGB CONC 33.6 g/dL (33.0-37.0); MONO # 1.1 K/uL (0.0-0.8); MONO % 9.4 % (0.0-10.0); NEUT # 6.4 K/uL (1.8-7.0); NEUT % 55.3 % (50.0-75.0); RBC 4.07 Mil/uL (3.80-5.20); RED CELL DISTRIBUTION WIDTH 13.9 % (11.5-14.5); WHITE BLOOD COUNT 11.6 K/uL (4.8-10.8)
[2017-08-26 07:34] LABS: ALBUMIN 2.9 g/dL (3.5-5.0); ALT/SGPT 20 U/L (9-52); AST/SGOT 27 U/L (14-36); BLOOD UREA NITROGEN 19 mg/dL (7-17); GFR AFRICAN-AMERICAN > 60; GFR NON-AFRICAN AMERICAN > 60
[2017-08-26 07:50] LABS: T4 8.75 ug/dL (5.5-11.0)
[2017-08-26] MEDS ORDERED: Midazolam 2 MG/2 ML VIAL ONE (09:33)
[2017-08-26 09:35] LABS: INR 1.2; PROTHROMBIN TIME 13.8 SECONDS (9.7-12.2)
[2017-08-26] MEDS ORDERED: Iodixanol 320 MG/ML 200 ML BOTTLE IV ONE (09:47)
[2017-08-26] MEDS ORDERED: Iodixanol 320 MG/ML 100 ML BOTTLE IV ONE (09:47)
[2017-08-26] MEDS: Heparin25000 units/250ml 1/2NS 25,000 UNITS/250 ML BAG IV PRN (10:20)
--- NOTE | 2017-08-26 10:28 | PCM.SURG1 ---
Surgeon's Initial Post Op Note - Surgeon's Notes Surgeon: Clarence Hunt MD Claim Review Medical Director: NONE Type of Anesthesia: Moderate Sedation{RN} Pre-Operative Diagnosis: Iliofemoral DVT s/p catheter directed thrombolysis, PE Operative Findings: Left popliteal venogram showed near complete resolution of DVT, iliac vein also showed significant improvement in flow and minimal residual thrombus. 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 This is felt to be related to the right common iliac artery. The aorta and iliac artery and calcified. Post-Operative Diagnosis: Iliofemoral DVT, Left common iliac vein stenosis. Operation Performed: Left lower extremity venogram. [employer] common iliac vein with a 10 mm balloon. Intravascular stent placement 14 mm x 8 cm left common iliac vein. Specimen/Specimens Removed: nONE Estimated Blood Loss: EBL {In ML}: 5 Blood Products Given: N/A Drains Used: No Drains Post-Op Condition: Fair Date of Surgery/Procedure: 08/26/17 Time of Surgery/Procedure: 10:20
--- NOTE | 2017-08-26 13:12 | CP.CCUPN ---
<Luciano Steve - Last Filed: 08/26/17 14:21> CCU Subjective - Physician Review Subjective (Free Text): 08/26/17 13:09 Patient seen and examined at bedside. Doing well s/p Stent L. common iliac EKOS d/c counseled on smoking cessation CCU Objective - Vital Signs / Intake & Output Vital Signs (Last 4 hours): Vital Signs Pulse Resp BP Pulse Ox 08/26/17 12:00 88 19 93 L 08/26/17 11:19 85 19 127/63 94 L 08/26/17 11:00 87 14 08/26/17 10:47 87 92 L Intake and Output (Last 8hrs): Intake & Output 08/25/17 08/26/17 08/26/17 22:59 06:59 14:59 Intake Total 972.3 672.8 638.3 Output Total 435 370 190 Balance 537.3 302.8 448.3 Intake: IV 30 Intake, IV Amount 672.3 672.8 368.3 Left Popliteal 1 40 40 15 Left Popliteal 2 200 200 75 Left Popliteal 3 280 280 105 Right Distal Port Hand 100 Right Hand 152.3 152.8 73.3 Oral 300 240 Output: Urine 435 370 190 Urethral (Leone) 435 370 190 Other: # Bowel Movements 0 0 - Physical Exam Head: Positive for: Atraumatic, Normocephalic Pupils: Positive for: PERRL Extroacular Muscles: Positive for: EOMI Conjunctiva: Positive for: Normal Mouth: Positive for: Moist Mucous Membranes Neck: Positive for: Normal Range of Motion Respiratory/Chest: Positive for: Clear to Auscultation, Accessory Muscle Use Cardiovascular: Positive for: Regular Rate and Rhythm, Murmurs, Normal S1, S2 Abdomen: Positive for: Normal Bowel Sounds. Negative for: Tenderness, Distention, Peritoneal Signs Neurological: Positive for: CN II-XII Intact Skin: Positive for: Warm, Dry, Normal Color. Negative for: Rashes Psychiatric: Positive for: Alert, Oriented x 3 - Medications Active Medications: Active Medications Generic Name Dose Route Start Last Admin Trade Name Freq PRN Reason Stop Dose Admin Famotidine 20 mg 08/25/17 10:00 08/26/17 10:50 Pepcid PO Not Given BID JENNIFER Vancomycin/Sodium Chloride 1 gm in 200 mls @ 200 mls/hr 08/24/17 22:15 02:11 Vancomycin 1 Gm/Ns 200 Ml IVPB 08/29/17 22:01 200 mls/hr STAT JENNIFER Administration Sodium Chloride 1,000 mls @ 35 mls/hr 08/25/17 10:00 08/25/17 12:05 Sodium Chloride 0.9% IV 35 mls/hr .Q24H JENNIFER Administration Alteplase, Recombinant 10 mg/ 250 mls @ 25 mls/hr 08/26/17 08:20 08/26/17 08: 47 Sodium Chloride IV 08/26/17 18:19 25 mls/hr ONCE ONE Administration Heparin Sodium/Sodium Chloride 25,000 units in 250 mls @ 15.989 mls/hr 12:00 08/26/17 10:20 Heparin 13077 Units/250ml 1/2 Normal Saline IV 15 units/kg/hr .[id number] PRN 15.989 mls/hr PROTOCOL Administration Protocol 15 UNITS/KG/HR Pneumococcal Polyvalent Vaccine 0.5 ml 08/28/17 10:00 Pneumovax 23 Vaccine IM 08/28/17 10:01 .ONCE ONE - Patient Studies Lab Studies: Microbiology Studies 08/24/17 21:30 Blood Culture - Preliminary Blood NO GROWTH AFTER 24 HOURS 08/24/17 22:26 Blood Culture - Preliminary Blood NO GROWTH AFTER 24 HOURS Lab Studies 08/26/17 08/26/17 08/26/17 Range/Units 08:47 07:04 07:02 WBC 11.6 H (4.8-10.8) K/uL RBC 4.07 (3.80-5.20) Mil/uL Hgb 11.7 (11.0-16.0) g/dL Hct 34.8 (34.0-47.0) % MCV 85.7 (81.0-99.0) fL MCH 28.8 (27.0-31.0) pg MCHC 33.6 (33.0-37.0) g/dL RDW 13.9 (11.5-14.5) % Plt Count 354 (130-400) K/uL MPV 8.0 (7.2-11.7) fL Neut % (Auto) 55.3 (50.0-75.0) % Lymph % (Auto) 31.8 (20.0-40.0) % Piatt % (Auto) 9.4 (0.0-10.0) % Eos % (Auto) 2.6 (0.0-4.0) % Baso % (Auto) 0.9 (0.0-2.0) % Neut # 6.4 (1.8-7.0) K/uL Lymph # 3.7 (1.0-4.3) K/uL Piatt # 1.1 H (0.0-0.8) K/uL Eos # 0.3 (0.0-0.7) K/uL Baso # 0.1 (0.0-0.2) K/uL PT 13.8 H (9.7-12.2) SECONDS INR 1.2 APTT 181 H* D (21-34) SECONDS Sodium 133 (132-148) mmol/L Potassium 4.1 (3.6-5.2) mmol/L Chloride 103 (98-107) mmol/L Carbon Dioxide 28 (22-30) mmol/L Anion Gap 7 L (10-20) BUN 19 H (7-17) mg/dL Creatinine 0.6 L (0.7-1.2) mg/dL Est GFR ( Amer) > 60 Est GFR (Non-Af Amer) > 60 Random Glucose 90 (65-105) mg/dL Calcium 8.0 L (8.6-10.4) mg/dl Total Bilirubin 1.0 (0.2-1.3) mg/dL AST 27 (14-36) U/L ALT 20 (9-52) U/L Alkaline Phosphatase 66 (38-126) U/L Total Protein 5.8 L (6.3-8.3) g/dL Albumin 2.9 L (3.5-5.0) g/dL Globulin 2.9 (2.2-3.9) gm/dL Albumin/Globulin Ratio 1.0 (1.0-2.1) Thyroxine (T4) 8.75 (5.5-11.0) ug/dL TSH 3rd Generation 0.58 (0.46-4.68) mIU/L 08/25/17 Range/Units 16:10 WBC (4.8-10.8) K/uL RBC (3.80-5.20) Mil/uL Hgb (11.0-16.0) g/dL Hct (34.0-47.0) % MCV (81.0-99.0) fL MCH (27.0-31.0) pg MCHC (33.0-37.0) g/dL RDW (11.5-14.5) % Plt Count (130-400) K/uL MPV (7.2-11.7) fL Neut % (Auto) (50.0-75.0) % Lymph % (Auto) (20.0-40.0) % Piatt % (Auto) (0.0-10.0) % Eos % (Auto) (0.0-4.0) % Baso % (Auto) (0.0-2.0) % Neut # (1.8-7.0) K/uL Lymph # (1.0-4.3) K/uL Piatt # (0.0-0.8) K/uL Eos # (0.0-0.7) K/uL Baso # (0.0-0.2) K/uL PT 12.1 (9.7-12.2) SECONDS INR 1.1 APTT 69 H D (21-34) SECONDS Sodium (132-148) mmol/L Potassium (3.6-5.2) mmol/L Chloride (98-107) mmol/L Carbon Dioxide (22-30) mmol/L Anion Gap (10-20) BUN (7-17) mg/dL Creatinine (0.7-1.2) mg/dL Est GFR ( Amer) Est GFR (Non-Af Amer) Random Glucose (65-105) mg/dL Calcium (8.6-10.4) mg/dl Total Bilirubin (0.2-1.3) mg/dL AST (14-36) U/L ALT (9-52) U/L Alkaline Phosphatase (38-126) U/L Total Protein (6.3-8.3) g/dL Albumin (3.5-5.0) g/dL Globulin (2.2-3.9) gm/dL Albumin/Globulin Ratio (1.0-2.1) Thyroxine (T4) (5.5-11.0) ug/dL TSH 3rd Generation (0.46-4.68) mIU/L Laboratory Results - last 24 hr 08/25/17 08/26/17 08/26/17 16:10 07:02 07:04 WBC 11.6 H RBC 4.07 Hgb 11.7 Hct 34.8 MCV 85.7 MCH 28.8 MCHC 33.6 RDW 13.9 Plt Count 354 MPV 8.0 Neut % (Auto) 55.3 Lymph % (Auto) 31.8 Piatt % (Auto) 9.4 Eos % (Auto) 2.6 Baso % (Auto) 0.9 Neut # 6.4 Lymph # 3.7 Piatt # 1.1 H Eos # 0.3 Baso # 0.1 PT 12.1 INR 1.1 APTT 69 H D Sodium 133 Potassium 4.1 Chloride 103 Carbon Dioxide 28 Anion Gap 7 L BUN 19 H Creatinine 0.6 L Est GFR ( Amer) > 60 Est GFR (Non-Af Amer) > 60 Random Glucose 90 Calcium 8.0 L Total Bilirubin 1.0 AST 27 ALT 20 Alkaline Phosphatase 66 Total Protein 5.8 L Albumin 2.9 L Globulin 2.9 Albumin/Globulin Ratio 1.0 Thyroxine (T4) 8.75 TSH 3rd Generation 0.58 08/26/17 08:47 WBC RBC Hgb Hct MCV MCH MCHC RDW Plt Count MPV Neut % (Auto) Lymph % (Auto) Piatt % (Auto) Eos % (Auto) Baso % (Auto) Neut # Lymph # Piatt # Eos # Baso # PT 13.8 H INR 1.2 APTT 181 H* D Sodium Potassium Chloride Carbon Dioxide Anion Gap BUN Creatinine Est GFR ( Amer) Est GFR (Non-Af Amer) Random Glucose Calcium Total Bilirubin AST ALT Alkaline Phosphatase Total Protein Albumin Globulin Albumin/Globulin Ratio Thyroxine (T4) TSH 3rd Generation Critical Care Progress Note - Nutrition Nutrition: Nutrition Category Date Time Status Regular Diet [DIET] Diets 08/25/17 Lunch Active Assessment/Plan - Assessment and Plan (Free Text) Assessment: Assessment: 67WF s/p EKOS POD 1 for PE in L. Pulm a. ; POD 0 L. common illiac stent Plan: Neuro A/O x3 Cardio CTA shows R. Mediastinal Mass, consider Bx 08/25/17 Ekos w/catheter directed TPA of left femoral vein, IVC filter placement 1/16/18 iliofemoral DVT, left common iliac vein stenosis. Left lower extremity venogram, [employer] common iliac vein with 10 mm balloon. Intravascular stent placement 14 mmx 8 cm left common iliac vein. LE US - Totally occlusive thrombus in L. common fem, L. prox fem, popliteal and gastroc vv. heparin drip monitor for signs of bleeding Pulm: PE in L. Pulm a. s/p EKOS POD 0 - monitor for signs of bleeding Renal: Leone MSK: LLE les swollen today LE US - Totally occlusive thrombus in L. common fem, L. prox fem, popliteal and gastroc vv. Hematology: DVT H&H: 11.7/34.8 Plt: 354 PT/PTT/INR: 13.8/181/1.[address] Lee Follow up am H&H PPx: Pepcid Heparin drip <Vlad Cross - Last Filed: 08/26/17 17:50> CCU Objective - Vital Signs / Intake & Output Vital Signs (Last 4 hours): Vital Signs Pulse Resp BP Pulse Ox 08/26/17 15:27 83 24 126/70 96 08/26/17 15:00 80 22 96 08/26/17 14:27 83 24 128/71 94 L 08/26/17 14:00 83 20 95 Intake and Output (Last 8hrs): Intake & Output 08/26/17 08/26/17 08/26/17 06:59 14:59 22:59 Intake Total 672.8 1470.3 356 Output Total 370 300 60 Balance 302.8 1170.3 296 Intake: IV 30 Intake, IV Amount 672.8 600.3 116 Left Popliteal 1 40 15 Left Popliteal 2 200 75 Left Popliteal 3 280 105 Right Distal Port Hand 300 100 Right Hand 152.8 105.3 16 Oral 840 240 Output: Urine 370 300 60 Urethral (Leone) 370 300 60 Other: # Bowel Movements 0 0 0 - Medications Active Medications: Active Medications Generic Name Dose Route Start Last Admin Trade Name Freq PRN Reason Stop Dose Admin Famotidine 20 mg 08/25/17 10:00 08/26/17 17:29 Pepcid PO 20 mg BID JENNIFER Administration Vancomycin/Sodium Chloride 1 gm in 200 mls @ 200 mls/hr 08/24/17 22:15 02:11 Vancomycin 1 Gm/Ns 200 Ml IVPB 08/29/17 22:01 200 mls/hr STAT JENNIFER Administration Sodium Chloride 1,000 mls @ 35 mls/hr 08/25/17 10:00 08/26/17 14:00 Sodium Chloride 0.9% IV 35 mls/hr .Q24H JENNIFER Administration Alteplase, Recombinant 10 mg/ 250 mls @ 25 mls/hr 08/26/17 08:20 08/26/17 08: 47 Sodium Chloride IV 08/26/17 18:19 25 mls/hr ONCE ONE Administration Heparin Sodium/Sodium Chloride 25,000 units in 250 mls @ 15.989 mls/hr 12:00 08/26/17 10:20 Heparin 31833 Units/250ml 1/2 Normal Saline IV 15 units/kg/hr .[id number] PRN 15.989 mls/hr PROTOCOL Administration Protocol 15 UNITS/KG/HR Nicotine 1 patch 08/27/17 10:00 Nicoderm Cq TD DAILY JENNIFER Pneumococcal Polyvalent Vaccine 0.5 ml 08/28/17 10:00 Pneumovax 23 Vaccine IM 08/28/17 10:01 .ONCE ONE - Patient Studies Lab Studies: Microbiology Studies 08/25/17 Unknown MRSA Culture (Admit) - Final Naris MRSA NOT DETECTED 08/24/17 21:30 Blood Culture - Preliminary Blood NO GROWTH AFTER 24 HOURS 08/24/17 22:26 Blood Culture - Preliminary Blood NO GROWTH AFTER 24 HOURS Lab Studies 08/26/17 08/26/17 08/26/17 Range/Units 16:33 16:33 16:33 WBC (4.8-10.8) K/uL RBC (3.80-5.20) Mil/uL Hgb (11.0-16.0) g/dL Hct (34.0-47.0) % MCV (81.0-99.0) fL MCH (27.0-31.0) pg MCHC (33.0-37.0) g/dL RDW (11.5-14.5) % Plt Count (130-400) K/uL MPV (7.2-11.7) fL Neut % (Auto) (50.0-75.0) % Lymph % (Auto) (20.0-40.0) % Piatt % (Auto) (0.0-10.0) % Eos % (Auto) (0.0-4.0) % Baso % (Auto) (0.0-2.0) % Neut # (1.8-7.0) K/uL Lymph # (1.0-4.3) K/uL Piatt # (0.0-0.8) K/uL Eos # (0.0-0.7) K/uL Baso # (0.0-0.2) K/uL Retic Count 1.4 (0.5-1.5) % PT (9.7-12.2) SECONDS INR APTT 81 H D (21-34) SECONDS Sodium (132-148) mmol/L Potassium (3.6-5.2) mmol/L Chloride (98-107) mmol/L Carbon Dioxide (22-30) mmol/L Anion Gap (10-20) BUN (7-17) mg/dL Creatinine (0.7-1.2) mg/dL Est GFR ( Amer) Est GFR (Non-Af Amer) Random Glucose (65-105) mg/dL Calcium (8.6-10.4) mg/dl Ferritin 288.0 ng/mL Total Bilirubin (0.2-1.3) mg/dL AST (14-36) U/L ALT (9-52) U/L Alkaline Phosphatase (38-126) U/L Total Protein (6.3-8.3) g/dL Albumin (3.5-5.0) g/dL Globulin (2.2-3.9) gm/dL Albumin/Globulin Ratio (1.0-2.1) Carcinoembryonic Ag 0.8 (0-3.0) ng/mL CA 15-3 Antigen 16.1 (0-35) U/mL CA 19-9 Antigen 5.3 (0-37) U/mL CA 125 Antigen < 5.5 (0-35) U/mL Thyroxine (T4) (5.5-11.0) ug/dL TSH 3rd Generation (0.46-4.68) mIU/L 08/26/17 08/26/17 08/26/17 Range/Units 08:47 07:04 07:02 WBC 11.6 H (4.8-10.8) K/uL RBC 4.07 (3.80-5.20) Mil/uL Hgb 11.7 (11.0-16.0) g/dL Hct 34.8 (34.0-47.0) % MCV 85.7 (81.0-99.0) fL MCH 28.8 (27.0-31.0) pg MCHC 33.6 (33.0-37.0) g/dL RDW 13.9 (11.5-14.5) % Plt Count 354 (130-400) K/uL MPV 8.0 (7.2-11.7) fL Neut % (Auto) 55.3 (50.0-75.0) % Lymph % (Auto) 31.8 (20.0-40.0) % Piatt % (Auto) 9.4 (0.0-10.0) % Eos % (Auto) 2.6 (0.0-4.0) % Baso % (Auto) 0.9 (0.0-2.0) % Neut # 6.4 (1.8-7.0) K/uL Lymph # 3.7 (1.0-4.3) K/uL Piatt # 1.1 H (0.0-0.8) K/uL Eos # 0.3 (0.0-0.7) K/uL Baso # 0.1 (0.0-0.2) K/uL Retic Count (0.5-1.5) % PT 13.8 H (9.7-12.2) SECONDS INR 1.2 APTT 181 H* D (21-34) SECONDS Sodium 133 (132-148) mmol/L Potassium 4.1 (3.6-5.2) mmol/L Chloride 103 (98-107) mmol/L Carbon Dioxide 28 (22-30) mmol/L Anion Gap 7 L (10-20) BUN 19 H (7-17) mg/dL Creatinine 0.6 L (0.7-1.2) mg/dL Est GFR ( Amer) > 60 Est GFR (Non-Af Amer) > 60 Random Glucose 90 (65-105) mg/dL Calcium 8.0 L (8.6-10.4) mg/dl Ferritin ng/mL Total Bilirubin 1.0 (0.2-1.3) mg/dL AST 27 (14-36) U/L ALT 20 (9-52) U/L Alkaline Phosphatase 66 (38-126) U/L Total Protein 5.8 L (6.3-8.3) g/dL Albumin 2.9 L (3.5-5.0) g/dL Globulin 2.9 (2.2-3.9) gm/dL Albumin/Globulin Ratio 1.0 (1.0-2.1) Carcinoembryonic Ag (0-3.0) ng/mL CA 15-3 Antigen (0-35) U/mL CA 19-9 Antigen (0-37) U/mL CA 125 Antigen (0-35) U/mL Thyroxine (T4) 8.75 (5.5-11.0) ug/dL TSH 3rd Generation 0.58 (0.46-4.68) mIU/L Laboratory Results - last 24 hr 08/26/17 08/26/17 08/26/17 07:02 07:04 08:47 WBC 11.6 H RBC 4.07 Hgb 11.7 Hct 34.8 MCV 85.7 MCH 28.8 MCHC 33.6 RDW 13.9 Plt Count 354 MPV 8.0 Neut % (Auto) 55.3 Lymph % (Auto) 31.8 Piatt % (Auto) 9.4 Eos % (Auto) 2.6 Baso % (Auto) 0.9 Neut # 6.4 Lymph # 3.7 Piatt # 1.1 H Eos # 0.3 Baso # 0.1 Retic Count PT 13.8 H INR 1.2 APTT 181 H* D Sodium 133 Potassium 4.1 Chloride 103 Carbon Dioxide 28 Anion Gap 7 L BUN 19 H Creatinine 0.6 L Est GFR ( Amer) > 60 Est GFR (Non-Af Amer) > 60 Random Glucose 90 Calcium 8.0 L Ferritin Total Bilirubin 1.0 AST 27 ALT 20 Alkaline Phosphatase 66 Total Protein 5.8 L Albumin 2.9 L Globulin 2.9 Albumin/Globulin Ratio 1.0 Carcinoembryonic Ag CA 15-3 Antigen CA 19-9 Antigen CA 125 Antigen Thyroxine (T4) 8.75 TSH 3rd Generation 0.58 0108/26/17 08/26/17 16:33 16:33 16:33 WBC RBC Hgb Hct MCV MCH MCHC RDW Plt Count MPV Neut % (Auto) Lymph % (Auto) Piatt % (Auto) Eos % (Auto) Baso % (Auto) Neut # Lymph # Piatt # Eos # Baso # Retic Count 1.4 PT INR APTT 81 H D Sodium Potassium Chloride Carbon Dioxide Anion Gap BUN Creatinine Est GFR ( Amer) Est GFR (Non-Af Amer) Random Glucose Calcium Ferritin 288.0 Total Bilirubin AST ALT Alkaline Phosphatase Total Protein Albumin Globulin Albumin/Globulin Ratio Carcinoembryonic Ag 0.8 CA 15-3 Antigen 16.1 CA 19-9 Antigen 5.3 CA 125 Antigen < 5.5 Thyroxine (T4) TSH 3rd Generation Critical Care Progress Note - Nutrition Nutrition: Nutrition Category Date Time Status Regular Diet [DIET] Diets 08/25/17 Lunch Active Attending/Attestation - Attestation I have personally seen and examined this patient.: Yes I have fully participated in the care of the patient.: Yes I have reviewed all pertinent clinical information: Yes Notes (Text): 08/26/17 17:35 patient seen and examined in the intensive care unit. Case discussed with house staff in the morning around CTA shows R. Mediastinal Mass, consider Bx Status post EKOS with catheter directed TPA of left femoral vein, Status post stent placement in left common iliac vein continue heparin drip
[2017-08-26] MEDS: Sodium Chloride 0.9% 1,000 ML IV SCH (14:00)
--- NOTE | 2017-08-26 14:43 | CP.PCM.CON ---
<Kaya Ibrahim - Last Filed: 08/26/17 15:06> History of Present Illness - History of Present Illness History of Present Illness: Heme/Onc Consult for Dr. Kathrine Lee Reason for Consult: Left pulmonary PE, Left DVR, superior mediastinal mass 67 year old female with no PMHx admitted on 08/24/17 with left lower extremity pain and swelling. Patient was found to have left LE DVT as per US done in the ED. Patient admits to recent 6 hour flight from [place] in 08/15/17. She developed left leg swelling and redness after flight. She noticed swelling got worse after going to work as a [employer] member and decided to come in to the hospital for evaluation. She denies chest pain or SOB. Admits to chronic cough she states is secondary to tobacco use. She smokes 1/2 ppd for the past 30-35 years. Patient denies history of malignancy in herself, but admits mother of uterine cancer in her 40's and father of bone cancer. Patient admits to recent fall secondary to dizziness on 08/23/17 and believed leg swelling was from the fall. She fell on her right side and did not have LOC or head trauma. Patient has not smoked since being admitted to the hospital on 08/24/17 and reports no cravings at this time. PMHx: none Meds: none Allergies: none Surgeries: none Social Hx: Admits to smoking 1/2 a ppd for the past 30-35 years. Denies ETOH or drug use. Family Hx: Mother with uterine CA in her 40's and father with bone CA. Review of Systems - Constitutional Constitutional: absent: Chills, Fatigue, Fever - EENT Eyes: absent: Blurred Vision, Change in Vision - Cardiovascular Cardiovascular: Leg Edema. absent: Chest Pain, Chest Pain at Rest, Chest Pain with Activity, Dyspnea on Exertion, Palpitations - Respiratory Respiratory: Cough. absent: Dyspnea, Wheezing - Gastrointestinal Gastrointestinal: absent: Abdominal Pain, Bloating, Constipation, Diarrhea, Nausea, Vomiting - Genitourinary Genitourinary: absent: Difficulty Urinating, Dysuria - Musculoskeletal Musculoskeletal: absent: Back Pain, Numbness, Tingling - Integumentary Integumentary: Erythema (left LE), Swelling (left LE). absent: Wounds - Neurological Neurological: Dizziness (once 3 days ago). absent: Vertigo, Weakness - Endocrine Endocrine: absent: Fatigue, Palpitations - Hematologic/Lymphatic Hematologic: absent: Easy Bleeding, Easy Bruising Past Patient History - Past Medical History & Family History Past Medical History?: No - Past Social History Smoking Status: Light Smoker < 10 Cigarettes Daily - MUSCULOSKELETAL/RHEUMATOLOGICAL Hx Falls: Yes (08/16/17 DUE TO DIZZINESS) - PSYCHIATRIC Hx Substance Use: No - SURGICAL HISTORY Hx Surgeries: No - ANESTHESIA Hx Anesthesia: No Meds Allergies/Adverse Reactions: Allergies Allergy/AdvReac Type Severity Reaction Status Date / Time No Known Allergies Allergy Unverified 08/24/17 19:19 - Medications Medications: Current Medications Famotidine (Pepcid) 20 mg PO BID [facility] Last Admin: 08/26/17 10:50 Dose: Not Given Vancomycin/Sodium Chloride (Vancomycin 1 Gm/Ns 200 Ml) 1 gm in 200 mls @ 200 mls/hr IVPB STAT [facility] Stop: 08/29/17 22:01 Last Admin: 08/25/17 02:11 Dose: 200 mls/hr Sodium Chloride (Sodium Chloride 0.9%) 1,000 mls @ 35 mls/hr IV .Q24H [facility] Last Admin: 08/25/17 12:05 Dose: 35 mls/hr Alteplase, Recombinant 10 mg/ (Sodium Chloride) 250 mls @ 25 mls/hr IV ONCE ONE Stop: 08/26/17 18:19 Last Admin: 08/26/17 08:47 Dose: 25 mls/hr Heparin Sodium/Sodium Chloride (Heparin 79197 Units/250ml 1/2 Normal Saline) 25 ,000 units in 250 mls @ 15.989 mls/hr IV .[id number] PRN; Protocol; 15 UNITS/KG/HR PRN Reason: PROTOCOL Last Admin: 08/26/17 10:20 Dose: 15 units/kg/hr, 15.989 mls/hr Nicotine (Nicoderm Cq) 1 patch TD DAILY [facility] Pneumococcal Polyvalent Vaccine (Pneumovax 23 Vaccine) 0.5 ml IM .ONCE ONE Stop: 08/28/17 10:01 Physical Exam - Constitutional Appears: No Acute Distress - Head Exam Head Exam: NORMAL INSPECTION, NORMOCEPHALIC - Eye Exam Eye Exam: EOMI, Normal appearance - ENT Exam ENT Exam: Mucous Membranes Moist - Neck Exam Neck exam: Positive for: Full Rom - Respiratory Exam Respiratory Exam: Wheezes, NORMAL BREATHING PATTERN - Cardiovascular Exam Cardiovascular Exam: REGULAR RHYTHM, +S1, +S2 - GI/Abdominal Exam GI & Abdominal Exam: Normal Bowel Sounds, Soft. absent: Distended, Tenderness - Extremities Exam Extremities exam: Positive for: normal inspection (right LE). Negative for: calf tenderness Additional comments: Left LE is swollen up to thigh, with erythema and warmth up until the inguinal fold, +1 pitting edema - Neurological Exam Neurological exam: Alert, Oriented x3 - Psychiatric Exam Psychiatric exam: Normal Affect, Normal Mood - Skin Skin Exam: Dry, Warm Additional comments: Erythema left leg all up until the inguinal fold Results - Vital Signs Recent Vital Signs: Last Vital Signs Temp 98.5 F 08/26/17 08:00 Pulse 83 08/26/17 14:00 Resp 20 08/26/17 14:00 BP 124/75 08/26/17 13:27 Pulse Ox 95 08/26/17 14:00 - Labs Result Diagrams: 08/26/17 07:02 08/26/17 07:04 Labs: Laboratory Results - last 24 hr 08/25/17 08/26/17 08/26/17 16:10 07:02 07:04 WBC 11.6 H RBC 4.07 Hgb 11.7 Hct 34.8 MCV 85.7 MCH 28.8 MCHC 33.6 RDW 13.9 Plt Count 354 MPV 8.0 Neut % (Auto) 55.3 Lymph % (Auto) 31.8 [place] % (Auto) 9.4 Eos % (Auto) 2.6 Baso % (Auto) 0.9 Neut # 6.4 Lymph # 3.7 [place] # 1.1 H Eos # 0.3 Baso # 0.1 PT 12.1 INR 1.1 APTT 69 H D Sodium 133 Potassium 4.1 Chloride 103 Carbon Dioxide 28 Anion Gap 7 L BUN 19 H Creatinine 0.6 L Est GFR ( Amer) > 60 Est GFR (Non-Af Amer) > 60 Random Glucose 90 Calcium 8.0 L Total Bilirubin 1.0 AST 27 ALT 20 Alkaline Phosphatase 66 Total Protein 5.8 L Albumin 2.9 L Globulin 2.9 Albumin/Globulin Ratio 1.0 Thyroxine (T4) 8.75 TSH 3rd Generation 0.58 08/26/17 08:47 WBC RBC Hgb Hct MCV MCH MCHC RDW Plt Count MPV Neut % (Auto) Lymph % (Auto) [place] % (Auto) Eos % (Auto) Baso % (Auto) Neut # Lymph # [place] # Eos # Baso # PT 13.8 H INR 1.2 APTT 181 H* D Sodium Potassium Chloride Carbon Dioxide Anion Gap BUN Creatinine Est GFR ( Amer) Est GFR (Non-Af Amer) Random Glucose Calcium Total Bilirubin AST ALT Alkaline Phosphatase Total Protein Albumin Globulin Albumin/Globulin Ratio Thyroxine (T4) TSH 3rd Generation Assessment & Plan (1) Pulmonary embolism on left Assessment and Plan: Patient is s/p left common iliac stent, EKOS and IVC filter placement. Continue with therapeutic anticoagulation. Switch to PO on discharge. Patient will need anticoagulation for 6 months. Patient agrees and understands. Patient to follow up with Dr. Lee upon discharge. Status: Acute (2) Left leg DVT Assessment and Plan: As per IR report, left popliteal venogram showed extensive thrombus in the femoral vein, common femoral vein, Iliac vein. Patient underwent catheter directed thrombolysis of left femoral vein, IVC filter placement and intravascular stent placement 14 mm x 8 cm left common iliac vein. Continue with therapeutic anticoagulation as above. Patient to follow up with Dr. Lee upon discharge. Status: Acute (3) Mediastinal mass Assessment and Plan: Dr. Lee discussed concern for malignancy and need for further workup, including need for liver biposy. However, patient refuses further workup at this time and would like to follow up with Dr. Lee as outpatient. Will check tumor markers. PET scan and possible liver biopsy as outpatient if patient agreeable. Status: Acute (4) Anemia Assessment and Plan: Will check retic count, B12, Folate, Ferritin, and stool OB. Status: Acute (5) Tobacco abuse Assessment and Plan: Patient counseled on smoking cessation. Patient does not want nicotine patch or the similar at this time and would like to try to quit on her own. Status: Acute - Assessment and Plan (Free Text) Assessment: Patient seen during rounds with Dr. Lee. Recommendations above as per discussion with attending. Tato Ibrahim DO- PGY 3 <Edward Lee - Last Filed: 08/26/17 17:25> Meds - Medications Medications: Current Medications Famotidine (Pepcid) 20 mg PO BID [facility] Last Admin: 08/26/17 10:50 Dose: Not Given Vancomycin/Sodium Chloride (Vancomycin 1 Gm/Ns 200 Ml) 1 gm in 200 mls @ 200 mls/hr IVPB STAT [facility] Stop: 08/29/17 22:01 Last Admin: 08/25/17 02:11 Dose: 200 mls/hr Sodium Chloride (Sodium Chloride 0.9%) 1,000 mls @ 35 mls/hr IV .Q24H [facility] Last Admin: 08/25/17 12:05 Dose: 35 mls/hr Alteplase, Recombinant 10 mg/ (Sodium Chloride) 250 mls @ 25 mls/hr IV ONCE ONE Stop: 08/26/17 18:19 Last Admin: 08/26/17 08:47 Dose: 25 mls/hr Heparin Sodium/Sodium Chloride (Heparin 98373 Units/250ml 1/2 Normal Saline) 25 ,000 units in 250 mls @ 15.989 mls/hr IV .[id number] PRN; Protocol; 15 UNITS/KG/HR PRN Reason: PROTOCOL Last Admin: 08/26/17 10:20 Dose: 15 units/kg/hr, 15.989 mls/hr Nicotine (Nicoderm Cq) 1 patch TD DAILY [facility] Pneumococcal Polyvalent Vaccine (Pneumovax 23 Vaccine) 0.5 ml IM .ONCE ONE Stop: 08/28/17 10:01 Results - Vital Signs Recent Vital Signs: Last Vital Signs Temp 98.5 F 08/26/17 08:00 Pulse 83 08/26/17 15:27 Resp 24 08/26/17 15:27 BP 126/70 08/26/17 15:27 Pulse Ox 96 08/26/17 15:27 - Labs Result Diagrams: 08/26/17 07:02 08/26/17 07:04 Labs: Laboratory Results - last 24 hr 08/26/17 08/26/17 08/26/17 07:02 07:04 08:47 WBC 11.6 H RBC 4.07 Hgb 11.7 Hct 34.8 MCV 85.7 MCH 28.8 MCHC 33.6 RDW 13.9 Plt Count 354 MPV 8.0 Neut % (Auto) 55.3 Lymph % (Auto) 31.8 [place] % (Auto) 9.4 Eos % (Auto) 2.6 Baso % (Auto) 0.9 Neut # 6.4 Lymph # 3.7 [place] # 1.1 H Eos # 0.3 Baso # 0.1 Retic Count PT 13.8 H INR 1.2 APTT 181 H* D Sodium 133 Potassium 4.1 Chloride 103 Carbon Dioxide 28 Anion Gap 7 L BUN 19 H Creatinine 0.6 L Est GFR ( Amer) > 60 Est GFR (Non-Af Amer) > 60 Random Glucose 90 Calcium 8.0 L Total Bilirubin 1.0 AST 27 ALT 20 Alkaline Phosphatase 66 Total Protein 5.8 L Albumin 2.9 L Globulin 2.9 Albumin/Globulin Ratio 1.0 Thyroxine (T4) 8.75 TSH 3rd Generation 0.58 08/26/17 08/26/17 16:33 16:33 WBC RBC Hgb Hct MCV MCH MCHC RDW Plt Count MPV Neut % (Auto) Lymph % (Auto) [place] % (Auto) Eos % (Auto) Baso % (Auto) Neut # Lymph # [place] # Eos # Baso # Retic Count 1.4 PT INR APTT 81 H D Sodium Potassium Chloride Carbon Dioxide Anion Gap BUN Creatinine Est GFR ( Amer) Est GFR (Non-Af Amer) Random Glucose Calcium Total Bilirubin AST ALT Alkaline Phosphatase Total Protein Albumin Globulin Albumin/Globulin Ratio Thyroxine (T4) TSH 3rd Generation Assessment & Plan - Assessment and Plan (Free Text) Assessment: Pt seen and examined, agree with Dr. Ibrahim's consult note. 67 year old female with a history of tobacco abuse, admitted with LLE swelling, found to have extensive LLE DVT s/p catheter directed thrombolysis, IVF cilter, and venous stent, on anticoagulation, found to have an anterior mediastinal mass and liver lesion. Pt declined liver lesion/mediastinal w/u. Agreeable to outpatient PET CT and possible later biopsy. Therapeutic anticoagulation for 3-6 months. Thank you for this interesting consult.
[2017-08-26 17:56] LABS: FOLATE 9.5 ng/mL
--- NOTE | 2017-08-26 18:16 | CP.PCM.PN ---
Subjective - Date & Time of Evaluation Date of Evaluation: 08/26/17 Time of Evaluation: 15:00 - Subjective Subjective: Patient was seen and examined She feels better.She is happy about the outcome of her vascular procedures, denies pain She wants to go home as early as possible Objective - Vital Signs/Intake and Output Vital Signs (last 24 hours): Temp Pulse Resp BP Pulse Ox 98.5 F 83 24 126/70 96 08/26/17 08:00 08/26/17 15:27 08/26/17 15:27 08/26/17 15:27 08/26/17 15:27 Intake and Output: 08/26/17 08/26/17 06:59 18:59 Intake Total 1009.1 1826.3 Output Total 550 360 Balance 459.1 1466.3 - Medications Medications: Current Medications Famotidine (Pepcid) 20 mg PO BID [facility] Last Admin: 08/26/17 17:29 Dose: 20 mg Vancomycin/Sodium Chloride (Vancomycin 1 Gm/Ns 200 Ml) 1 gm in 200 mls @ 200 mls/hr IVPB STAT [facility] Stop: 08/29/17 22:01 Last Admin: 08/25/17 02:11 Dose: 200 mls/hr Sodium Chloride (Sodium Chloride 0.9%) 1,000 mls @ 35 mls/hr IV .Q24H [facility] Last Admin: 08/26/17 14:00 Dose: 35 mls/hr Alteplase, Recombinant 10 mg/ (Sodium Chloride) 250 mls @ 25 mls/hr IV ONCE ONE Stop: 08/26/17 18:19 Last Admin: 08/26/17 08:47 Dose: 25 mls/hr Heparin Sodium/Sodium Chloride (Heparin 28437 Units/250ml 1/2 Normal Saline) 25 ,000 units in 250 mls @ 15.989 mls/hr IV .[id number] PRN; Protocol; 15 UNITS/KG/HR PRN Reason: PROTOCOL Last Admin: 08/26/17 10:20 Dose: 15 units/kg/hr, 15.989 mls/hr Nicotine (Nicoderm Cq) 1 patch TD DAILY [facility] Pneumococcal Polyvalent Vaccine (Pneumovax 23 Vaccine) 0.5 ml IM .ONCE ONE Stop: 08/28/17 10:01 - Labs Labs: 08/26/17 07:02 08/26/17 07:04 PT 13.8 SECONDS (9.7-12.2) H 08/26/17 08:47 INR 1.2 08/26/17 08:47 APTT 81 SECONDS (21-34) H D 08/26/17 16:33 - Constitutional Appears: Non-toxic - Head Exam Head Exam: NORMAL INSPECTION - Eye Exam Eye Exam: Normal appearance - ENT Exam ENT Exam: Mucous Membranes Moist - Neck Exam Neck Exam: Full ROM, Normal Inspection - Respiratory Exam Respiratory Exam: Clear to Ausculation Bilateral, NORMAL BREATHING PATTERN - Cardiovascular Exam Cardiovascular Exam: REGULAR RHYTHM - GI/Abdominal Exam GI & Abdominal Exam: Soft, Normal Bowel Sounds - Extremities Exam Extremities Exam: absent: Normal Inspection (left leg is swollen) - Back Exam Back Exam: NORMAL INSPECTION - Neurological Exam Neurological Exam: Awake, Oriented x3 - Psychiatric Exam Psychiatric exam: Normal Mood - Skin Skin Exam: Dry Assessment and Plan - Assessment and Plan (Free Text) Plan: 1.) Left LLE DVT - Bilateral Lower Extremity Doppler: Right: No evidence of deep or superficial vein thrombosis of the right common femoral, femoral, popliteal and great saphenous veins. Left: Totally occluding acute deep vein thrombosis of the left common femoral, extending into the saphenofemoral junction with severe reduction of venous return. Totally occluding acute deep vein thrombosis of the left proximal femoral, popliteal and gastrocnemius veins. Superficial phlebitis of the left upper great saphenous vein. Dr. Hunt help appreciated s/p Iliofemoral DVT s/p catheter directed thrombolysis Left popliteal venogram showed near complete resolution of DVT. 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 [employer] common iliac vein with a 10 mm balloon. Intravascular stent placement 14 mm x 8 cm left common iliac vein. continue heparin and we will follow up with Dr hunt 2.) Left Pulmonary Artery PE - CTA: Emboli in lower lobe branches of the left pulmonary artery. There is a large heterogeneous partially calcified mass in the right superior mediastinum measuring approximately 4.2 x 7.7 cm in axial dimensions possibly thyroid in origin. This may be a known finding. There are prominent lymph nodes in the anterior mediastinum measuring up to 3cm in diameter. on Heparin Drip 3.) Mediastinum Mass Concern for Malignancy Patient was seen by Dr lee oncologist this afternoon. Dr Lee's help appreciated. d/w Him ,Patient doesn't want to go for biopsy before discharge. She wants to have further work up as an out pt 4.) Prophylaxis - GI PPX: Pepcid BID - DVT PPX: SCDs c/i, on Heparin drip
[2017-08-27] MEDS: Heparin25000 units/250ml 1/2NS 25,000 UNITS/250 ML BAG IV PRN (06:23)
[2017-08-27 06:40] LABS: BASO # 0.1 K/uL (0.0-0.2); EOS # 0.4 K/uL (0.0-0.7); EOS % 3.8 % (0.0-4.0); HEMOGLOBIN 10.7 g/dL (11.0-16.0); LYMPH # 3.9 K/uL (1.0-4.3); LYMPH % 37.8 % (20.0-40.0); MEAN CELL VOLUME 85.2 fL (81.0-99.0); MEAN CORPUSCULAR HEMOGLOBIN 28.7 pg (27.0-31.0); MEAN CORPUSCULAR HGB CONC 33.7 g/dL (33.0-37.0); MEAN PLATELET VOLUME 7.7 fL (7.2-11.7); MONO % 9.9 % (0.0-10.0); NEUT # 4.9 K/uL (1.8-7.0); NEUT % 47.5 % (50.0-75.0); RBC 3.73 Mil/uL (3.80-5.20); RED CELL DISTRIBUTION WIDTH 13.9 % (11.5-14.5); WHITE BLOOD COUNT 10.4 K/uL (4.8-10.8)
[2017-08-27 07:01] LABS: ALBUMIN 2.6 g/dL (3.5-5.0); ALT/SGPT 20 U/L (9-52); AST/SGOT 23 U/L (14-36); BLOOD UREA NITROGEN 14 mg/dL (7-17); CALCIUM 7.7 mg/dl (8.6-10.4); GFR AFRICAN-AMERICAN > 60; GFR NON-AFRICAN AMERICAN > 60
--- NOTE | 2017-08-27 10:09 | CP.CCUPN ---
<CandyyoshiLuciano - Last Filed: 08/27/17 10:07> CCU Subjective - Physician Review Subjective (Free Text): Paitient seen and examined at bedside Stable for transfer out of ICU No further need for ICU Level care at this time CCU Objective - Vital Signs / Intake & Output Vital Signs (Last 4 hours): Vital Signs Temp Pulse Resp BP Pulse Ox 08/27/17 08:27 81 17 127/67 93 L 08/27/17 08:00 79 17 94 L 08/27/17 07:30 98.0 F 08/27/17 07:27 73 17 134/77 94 L 08/27/17 07:00 94 H 23 08/27/17 06:27 76 18 123/63 Intake and Output (Last 8hrs): Intake & Output 08/26/17 08/27/17 08/27/17 22:59 06:59 14:59 Intake Total 907.6 692.2 101.8 Output Total 340 900 0 Balance 567.6 -207.8 101.8 Intake: IV 250 Intake, IV Amount 667.6 442.2 101.8 Right Distal Port Hand 540 280 70 Right Hand 127.6 162.2 31.8 Oral 240 Output: Urine 340 900 0 Urethral (Leone) 340 900 0 Other: # Voids Urine, Voided 0 # Bowel Movements 0 0 0 - Physical Exam Head: Positive for: Atraumatic, Normocephalic Pupils: Positive for: PERRL Extroacular Muscles: Positive for: EOMI Conjunctiva: Positive for: Normal Mouth: Positive for: Moist Mucous Membranes Neck: Positive for: Normal Range of Motion Respiratory/Chest: Positive for: Clear to Auscultation, Accessory Muscle Use Cardiovascular: Positive for: Regular Rate and Rhythm, Murmurs, Normal S1, S2 Abdomen: Positive for: Normal Bowel Sounds. Negative for: Tenderness, Distention, Peritoneal Signs Neurological: Positive for: CN II-XII Intact Skin: Positive for: Warm, Dry, Normal Color. Negative for: Rashes Psychiatric: Positive for: Alert, Oriented x 3 - Medications Active Medications: Active Medications Generic Name Dose Route Start Last Admin Trade Name Freq PRN Reason Stop Dose Admin Famotidine 20 mg 08/25/17 10:00 08/27/17 09:23 Pepcid PO 20 mg BID JENNIFER Administration Vancomycin/Sodium Chloride 1 gm in 200 mls @ 200 mls/hr 08/24/17 22:15 02:11 Vancomycin 1 Gm/Ns 200 Ml IVPB 08/29/17 22:01 200 mls/hr STAT JENNIFER Administration Heparin Sodium/Sodium Chloride 25,000 units in 250 mls @ 15.989 mls/hr 12:00 08/27/17 06:23 Heparin 89404 Units/250ml 1/2 Normal Saline IV 15 units/kg/hr .[id number] PRN 15.989 mls/hr PROTOCOL Administration Protocol 15 UNITS/KG/HR Nicotine 1 patch 08/27/17 10:00 Nicoderm Cq TD DAILY JENNIFER Pneumococcal Polyvalent Vaccine 0.5 ml 08/28/17 10:00 Pneumovax 23 Vaccine IM 08/28/17 10:01 .ONCE ONE - Patient Studies Lab Studies: Microbiology Studies 08/24/17 21:30 Blood Culture - Preliminary Blood NO GROWTH AFTER 48 HOURS 08/24/17 22:26 Blood Culture - Preliminary Blood NO GROWTH AFTER 48 HOURS 08/25/17 Unknown MRSA Culture (Admit) - Final Naris MRSA NOT DETECTED Lab Studies 08/27/17 08/27/17 08/27/17 Range/Units 06:30 06:30 06:27 WBC 10.4 (4.8-10.8) K/uL RBC 3.73 L (3.80-5.20) Mil/uL Hgb 10.7 L (11.0-16.0) g/dL Hct 31.8 L (34.0-47.0) % MCV 85.2 (81.0-99.0) fL MCH 28.7 (27.0-31.0) pg MCHC 33.7 (33.0-37.0) g/dL RDW 13.9 (11.5-14.5) % Plt Count 381 (130-400) K/uL MPV 7.7 (7.2-11.7) fL Neut % (Auto) 47.5 L (50.0-75.0) % Lymph % (Auto) 37.8 (20.0-40.0) % Dickson % (Auto) 9.9 (0.0-10.0) % Eos % (Auto) 3.8 (0.0-4.0) % Baso % (Auto) 1.0 (0.0-2.0) % Neut # 4.9 (1.8-7.0) K/uL Lymph # 3.9 (1.0-4.3) K/uL Dickson # 1.0 H (0.0-0.8) K/uL Eos # 0.4 (0.0-0.7) K/uL Baso # 0.1 (0.0-0.2) K/uL Retic Count (0.5-1.5) % APTT 86 H D (21-34) SECONDS Sodium 134 (132-148) mmol/L Potassium 3.9 (3.6-5.2) mmol/L Chloride 104 (98-107) mmol/L Carbon Dioxide 29 (22-30) mmol/L Anion Gap 5 L (10-20) BUN 14 (7-17) mg/dL Creatinine 0.6 L (0.7-1.2) mg/dL Est GFR ( Amer) > 60 Est GFR (Non-Af Amer) > 60 Random Glucose 91 (65-105) mg/dL Calcium 7.7 L (8.6-10.4) mg/dl Ferritin ng/mL Total Bilirubin 0.4 (0.2-1.3) mg/dL AST 23 (14-36) U/L ALT 20 (9-52) U/L Alkaline Phosphatase 58 (38-126) U/L Total Protein 5.4 L (6.3-8.3) g/dL Albumin 2.6 L (3.5-5.0) g/dL Globulin 2.7 (2.2-3.9) gm/dL Albumin/Globulin Ratio 1.0 (1.0-2.1) Alpha Fetoprotein (0.0-7.5) ng/mL Carcinoembryonic Ag (0-3.0) ng/mL CA 15-3 Antigen (0-35) U/mL CA 19-9 Antigen (0-37) U/mL CA 125 Antigen (0-35) U/mL Vitamin B12 (239-931) pg/mL Folate ng/mL 08/26/17 08/26/17 08/26/17 Range/Units 22:12 16:33 16:33 WBC (4.8-10.8) K/uL RBC (3.80-5.20) Mil/uL Hgb (11.0-16.0) g/dL Hct (34.0-47.0) % MCV (81.0-99.0) fL MCH (27.0-31.0) pg MCHC (33.0-37.0) g/dL RDW (11.5-14.5) % Plt Count (130-400) K/uL MPV (7.2-11.7) fL Neut % (Auto) (50.0-75.0) % Lymph % (Auto) (20.0-40.0) % Dickson % (Auto) (0.0-10.0) % Eos % (Auto) (0.0-4.0) % Baso % (Auto) (0.0-2.0) % Neut # (1.8-7.0) K/uL Lymph # (1.0-4.3) K/uL Dickson # (0.0-0.8) K/uL Eos # (0.0-0.7) K/uL Baso # (0.0-0.2) K/uL Retic Count 1.4 (0.5-1.5) % APTT 77 H (21-34) SECONDS Sodium (132-148) mmol/L Potassium (3.6-5.2) mmol/L Chloride (98-107) mmol/L Carbon Dioxide (22-30) mmol/L Anion Gap (10-20) BUN (7-17) mg/dL Creatinine (0.7-1.2) mg/dL Est GFR ( Amer) Est GFR (Non-Af Amer) Random Glucose (65-105) mg/dL Calcium (8.6-10.4) mg/dl Ferritin ng/mL Total Bilirubin (0.2-1.3) mg/dL AST (14-36) U/L ALT (9-52) U/L Alkaline Phosphatase (38-126) U/L Total Protein (6.3-8.3) g/dL Albumin (3.5-5.0) g/dL Globulin (2.2-3.9) gm/dL Albumin/Globulin Ratio (1.0-2.1) Alpha Fetoprotein 0.9 (0.0-7.5) ng/mL Carcinoembryonic Ag (0-3.0) ng/mL CA 15-3 Antigen (0-35) U/mL CA 19-9 Antigen (0-37) U/mL CA 125 Antigen (0-35) U/mL Vitamin B12 (239-931) pg/mL Folate ng/mL 08/26/17 08/26/17 Range/Units 16:33 16:33 WBC (4.8-10.8) K/uL RBC (3.80-5.20) Mil/uL Hgb (11.0-16.0) g/dL Hct (34.0-47.0) % MCV (81.0-99.0) fL MCH (27.0-31.0) pg MCHC (33.0-37.0) g/dL RDW (11.5-14.5) % Plt Count (130-400) K/uL MPV (7.2-11.7) fL Neut % (Auto) (50.0-75.0) % Lymph % (Auto) (20.0-40.0) % Dickson % (Auto) (0.0-10.0) % Eos % (Auto) (0.0-4.0) % Baso % (Auto) (0.0-2.0) % Neut # (1.8-7.0) K/uL Lymph # (1.0-4.3) K/uL Dickson # (0.0-0.8) K/uL Eos # (0.0-0.7) K/uL Baso # (0.0-0.2) K/uL Retic Count (0.5-1.5) % APTT 81 H D (21-34) SECONDS Sodium (132-148) mmol/L Potassium (3.6-5.2) mmol/L Chloride (98-107) mmol/L Carbon Dioxide (22-30) mmol/L Anion Gap (10-20) BUN (7-17) mg/dL Creatinine (0.7-1.2) mg/dL Est GFR ( Amer) Est GFR (Non-Af Amer) Random Glucose (65-105) mg/dL Calcium (8.6-10.4) mg/dl Ferritin 288.0 ng/mL Total Bilirubin (0.2-1.3) mg/dL AST (14-36) U/L ALT (9-52) U/L Alkaline Phosphatase (38-126) U/L Total Protein (6.3-8.3) g/dL Albumin (3.5-5.0) g/dL Globulin (2.2-3.9) gm/dL Albumin/Globulin Ratio (1.0-2.1) Alpha Fetoprotein (0.0-7.5) ng/mL Carcinoembryonic Ag 0.8 (0-3.0) ng/mL CA 15-3 Antigen 16.1 (0-35) U/mL CA 19-9 Antigen 5.3 (0-37) U/mL CA 125 Antigen < 5.5 (0-35) U/mL Vitamin B12 304 (239-931) pg/mL Folate 9.5 ng/mL Laboratory Results - last 24 hr 08/26/17 08/26/17 08/26/17 16:33 16:33 16:33 WBC RBC Hgb Hct MCV MCH MCHC RDW Plt Count MPV Neut % (Auto) Lymph % (Auto) Dickson % (Auto) Eos % (Auto) Baso % (Auto) Neut # Lymph # Dickson # Eos # Baso # Retic Count APTT 81 H D Sodium Potassium Chloride Carbon Dioxide Anion Gap BUN Creatinine Est GFR ( Amer) Est GFR (Non-Af Amer) Random Glucose Calcium Ferritin 288.0 Total Bilirubin AST ALT Alkaline Phosphatase Total Protein Albumin Globulin Albumin/Globulin Ratio Alpha Fetoprotein 0.9 Carcinoembryonic Ag 0.8 CA 15-3 Antigen 16.1 CA 19-9 Antigen 5.3 CA 125 Antigen < 5.5 Vitamin B12 304 Folate 9.5 08/26/17 08/26/17 08/27/17 16:33 22:12 06:27 WBC 10.4 RBC 3.73 L Hgb 10.7 L Hct 31.8 L MCV 85.2 MCH 28.7 MCHC 33.7 RDW 13.9 Plt Count 381 MPV 7.7 Neut % (Auto) 47.5 L Lymph % (Auto) 37.8 Dickson % (Auto) 9.9 Eos % (Auto) 3.8 Baso % (Auto) 1.0 Neut # 4.9 Lymph # 3.9 Dickson # 1.0 H Eos # 0.4 Baso # 0.1 Retic Count 1.4 APTT 77 H Sodium Potassium Chloride Carbon Dioxide Anion Gap BUN Creatinine Est GFR ( Amer) Est GFR (Non-Af Amer) Random Glucose Calcium Ferritin Total Bilirubin AST ALT Alkaline Phosphatase Total Protein Albumin Globulin Albumin/Globulin Ratio Alpha Fetoprotein Carcinoembryonic Ag CA 15-3 Antigen CA 19-9 Antigen CA 125 Antigen Vitamin B12 Folate 08/27/17 08/27/17 06:30 06:30 WBC RBC Hgb Hct MCV MCH MCHC RDW Plt Count MPV Neut % (Auto) Lymph % (Auto) Dickson % (Auto) Eos % (Auto) Baso % (Auto) Neut # Lymph # Dickson # Eos # Baso # Retic Count APTT 86 H D Sodium 134 Potassium 3.9 Chloride 104 Carbon Dioxide 29 Anion Gap 5 L BUN 14 Creatinine 0.6 L Est GFR ( Amer) > 60 Est GFR (Non-Af Amer) > 60 Random Glucose 91 Calcium 7.7 L Ferritin Total Bilirubin 0.4 AST 23 ALT 20 Alkaline Phosphatase 58 Total Protein 5.4 L Albumin 2.6 L Globulin 2.7 Albumin/Globulin Ratio 1.0 Alpha Fetoprotein Carcinoembryonic Ag CA 15-3 Antigen CA 19-9 Antigen CA 125 Antigen Vitamin B12 Folate Critical Care Progress Note - Nutrition Nutrition: Nutrition Category Date Time Status Regular Diet [DIET] Diets 08/25/17 Lunch Active <Vlad Cross S - Last Filed: 08/27/17 16:20> CCU Objective - Vital Signs / Intake & Output Vital Signs (Last 4 hours): Vital Signs Pulse Resp BP 08/27/17 14:00 82 22 131/70 08/27/17 13:31 80 20 131/70 08/27/17 13:00 86 14 Intake and Output (Last 8hrs): Intake & Output 08/27/17 08/27/17 08/27/17 06:59 14:59 22:59 Intake Total 692.2 290.4 Output Total 900 0 Balance -207.8 290.4 Intake: IV 250 Intake, IV Amount 442.2 290.4 Right Distal Port Hand 280 195 Right Hand 162.2 95.4 Oral 0 Output: Urine 900 0 Urethral (Leone) 900 0 Other: # Voids Urine, Voided 0 # Bowel Movements 0 0 - Medications Active Medications: Active Medications Generic Name Dose Route Start Last Admin Trade Name Freq PRN Reason Stop Dose Admin Famotidine 20 mg 08/25/17 10:00 08/27/17 09:23 Pepcid PO 20 mg BID JENNIFER Administration Vancomycin/Sodium Chloride 1 gm in 200 mls @ 200 mls/hr 08/24/17 22:15 02:11 Vancomycin 1 Gm/Ns 200 Ml IVPB 08/29/17 22:01 200 mls/hr STAT JENNIFER Administration Heparin Sodium/Sodium Chloride 25,000 units in 250 mls @ 15.989 mls/hr 12:00 08/27/17 06:23 Heparin 05695 Units/250ml 1/2 Normal Saline IV 15 units/kg/hr .[id number] PRN 15.989 mls/hr PROTOCOL Administration Protocol 15 UNITS/KG/HR Nicotine 1 patch 08/27/17 10:00 08/27/17 10:00 Nicoderm Cq TD Not Given DAILY [facility] Pneumococcal Polyvalent Vaccine 0.5 ml 08/28/17 10:00 Pneumovax 23 Vaccine IM 08/28/17 10:01 .ONCE ONE - Patient Studies Lab Studies: Microbiology Studies 08/24/17 21:30 Blood Culture - Preliminary Blood NO GROWTH AFTER 48 HOURS 08/24/17 22:26 Blood Culture - Preliminary Blood NO GROWTH AFTER 48 HOURS 08/25/17 Unknown MRSA Culture (Admit) - Final Naris MRSA NOT DETECTED Lab Studies 08/27/17 08/27/17 08/27/17 Range/Units 06:30 06:30 06:27 WBC 10.4 (4.8-10.8) K/uL RBC 3.73 L (3.80-5.20) Mil/uL Hgb 10.7 L (11.0-16.0) g/dL Hct 31.8 L (34.0-47.0) % MCV 85.2 (81.0-99.0) fL MCH 28.7 (27.0-31.0) pg MCHC 33.7 (33.0-37.0) g/dL RDW 13.9 (11.5-14.5) % Plt Count 381 (130-400) K/uL MPV 7.7 (7.2-11.7) fL Neut % (Auto) 47.5 L (50.0-75.0) % Lymph % (Auto) 37.8 (20.0-40.0) % Dickson % (Auto) 9.9 (0.0-10.0) % Eos % (Auto) 3.8 (0.0-4.0) % Baso % (Auto) 1.0 (0.0-2.0) % Neut # 4.9 (1.8-7.0) K/uL Lymph # 3.9 (1.0-4.3) K/uL Dickson # 1.0 H (0.0-0.8) K/uL Eos # 0.4 (0.0-0.7) K/uL Baso # 0.1 (0.0-0.2) K/uL Retic Count (0.5-1.5) % APTT 86 H D (21-34) SECONDS Sodium 134 (132-148) mmol/L Potassium 3.9 (3.6-5.2) mmol/L Chloride 104 (98-107) mmol/L Carbon Dioxide 29 (22-30) mmol/L Anion Gap 5 L (10-20) BUN 14 (7-17) mg/dL Creatinine 0.6 L (0.7-1.2) mg/dL Est GFR ( Amer) > 60 Est GFR (Non-Af Amer) > 60 Random Glucose 91 (65-105) mg/dL Calcium 7.7 L (8.6-10.4) mg/dl Ferritin ng/mL Total Bilirubin 0.4 (0.2-1.3) mg/dL AST 23 (14-36) U/L ALT 20 (9-52) U/L Alkaline Phosphatase 58 (38-126) U/L Total Protein 5.4 L (6.3-8.3) g/dL Albumin 2.6 L (3.5-5.0) g/dL Globulin 2.7 (2.2-3.9) gm/dL Albumin/Globulin Ratio 1.0 (1.0-2.1) Alpha Fetoprotein (0.0-7.5) ng/mL Carcinoembryonic Ag (0-3.0) ng/mL CA 15-3 Antigen (0-35) U/mL CA 19-9 Antigen (0-37) U/mL CA 125 Antigen (0-35) U/mL Vitamin B12 (239-931) pg/mL Folate ng/mL 08/26/17 08/26/17 08/26/17 Range/Units 22:12 16:33 16:33 WBC (4.8-10.8) K/uL RBC (3.80-5.20) Mil/uL Hgb (11.0-16.0) g/dL Hct (34.0-47.0) % MCV (81.0-99.0) fL MCH (27.0-31.0) pg MCHC (33.0-37.0) g/dL RDW (11.5-14.5) % Plt Count (130-400) K/uL MPV (7.2-11.7) fL Neut % (Auto) (50.0-75.0) % Lymph % (Auto) (20.0-40.0) % Dickson % (Auto) (0.0-10.0) % Eos % (Auto) (0.0-4.0) % Baso % (Auto) (0.0-2.0) % Neut # (1.8-7.0) K/uL Lymph # (1.0-4.3) K/uL Dickson # (0.0-0.8) K/uL Eos # (0.0-0.7) K/uL Baso # (0.0-0.2) K/uL Retic Count 1.4 (0.5-1.5) % APTT 77 H (21-34) SECONDS Sodium (132-148) mmol/L Potassium (3.6-5.2) mmol/L Chloride (98-107) mmol/L Carbon Dioxide (22-30) mmol/L Anion Gap (10-20) BUN (7-17) mg/dL Creatinine (0.7-1.2) mg/dL Est GFR ( Amer) Est GFR (Non-Af Amer) Random Glucose (65-105) mg/dL Calcium (8.6-10.4) mg/dl Ferritin ng/mL Total Bilirubin (0.2-1.3) mg/dL AST (14-36) U/L ALT (9-52) U/L Alkaline Phosphatase (38-126) U/L Total Protein (6.3-8.3) g/dL Albumin (3.5-5.0) g/dL Globulin (2.2-3.9) gm/dL Albumin/Globulin Ratio (1.0-2.1) Alpha Fetoprotein 0.9 (0.0-7.5) ng/mL Carcinoembryonic Ag (0-3.0) ng/mL CA 15-3 Antigen (0-35) U/mL CA 19-9 Antigen (0-37) U/mL CA 125 Antigen (0-35) U/mL Vitamin B12 (239-931) pg/mL Folate ng/mL 08/26/17 08/26/17 Range/Units 16:33 16:33 WBC (4.8-10.8) K/uL RBC (3.80-5.20) Mil/uL Hgb (11.0-16.0) g/dL Hct (34.0-47.0) % MCV (81.0-99.0) fL MCH (27.0-31.0) pg MCHC (33.0-37.0) g/dL RDW (11.5-14.5) % Plt Count (130-400) K/uL MPV (7.2-11.7) fL Neut % (Auto) (50.0-75.0) % Lymph % (Auto) (20.0-40.0) % Dickson % (Auto) (0.0-10.0) % Eos % (Auto) (0.0-4.0) % Baso % (Auto) (0.0-2.0) % Neut # (1.8-7.0) K/uL Lymph # (1.0-4.3) K/uL Dickson # (0.0-0.8) K/uL Eos # (0.0-0.7) K/uL Baso # (0.0-0.2) K/uL Retic Count (0.5-1.5) % APTT 81 H D (21-34) SECONDS Sodium (132-148) mmol/L Potassium (3.6-5.2) mmol/L Chloride (98-107) mmol/L Carbon Dioxide (22-30) mmol/L Anion Gap (10-20) BUN (7-17) mg/dL Creatinine (0.7-1.2) mg/dL Est GFR ( Amer) Est GFR (Non-Af Amer) Random Glucose (65-105) mg/dL Calcium (8.6-10.4) mg/dl Ferritin 288.0 ng/mL Total Bilirubin (0.2-1.3) mg/dL AST (14-36) U/L ALT (9-52) U/L Alkaline Phosphatase (38-126) U/L Total Protein (6.3-8.3) g/dL Albumin (3.5-5.0) g/dL Globulin (2.2-3.9) gm/dL Albumin/Globulin Ratio (1.0-2.1) Alpha Fetoprotein (0.0-7.5) ng/mL Carcinoembryonic Ag 0.8 (0-3.0) ng/mL CA 15-3 Antigen 16.1 (0-35) U/mL CA 19-9 Antigen 5.3 (0-37) U/mL CA 125 Antigen < 5.5 (0-35) U/mL Vitamin B12 304 (239-931) pg/mL Folate 9.5 ng/mL Laboratory Results - last 24 hr 08/26/17 08/26/17 08/26/17 16:33 16:33 16:33 WBC RBC Hgb Hct MCV MCH MCHC RDW Plt Count MPV Neut % (Auto) Lymph % (Auto) Dickson % (Auto) Eos % (Auto) Baso % (Auto) Neut # Lymph # Dickson # Eos # Baso # Retic Count APTT 81 H D Sodium Potassium Chloride Carbon Dioxide Anion Gap BUN Creatinine Est GFR ( Amer) Est GFR (Non-Af Amer) Random Glucose Calcium Ferritin 288.0 Total Bilirubin AST ALT Alkaline Phosphatase Total Protein Albumin Globulin Albumin/Globulin Ratio Alpha Fetoprotein 0.9 Carcinoembryonic Ag 0.8 CA 15-3 Antigen 16.1 CA 19-9 Antigen 5.3 CA 125 Antigen < 5.5 Vitamin B12 304 Folate 9.5 08/26/17 08/26/17 08/27/17 16:33 22:12 06:27 WBC 10.4 RBC 3.73 L Hgb 10.7 L Hct 31.8 L MCV 85.2 MCH 28.7 MCHC 33.7 RDW 13.9 Plt Count 381 MPV 7.7 Neut % (Auto) 47.5 L Lymph % (Auto) 37.8 Dickson % (Auto) 9.9 Eos % (Auto) 3.8 Baso % (Auto) 1.0 Neut # 4.9 Lymph # 3.9 Dickson # 1.0 H Eos # 0.4 Baso # 0.1 Retic Count 1.4 APTT 77 H Sodium Potassium Chloride Carbon Dioxide Anion Gap BUN Creatinine Est GFR ( Amer) Est GFR (Non-Af Amer) Random Glucose Calcium Ferritin Total Bilirubin AST ALT Alkaline Phosphatase Total Protein Albumin Globulin Albumin/Globulin Ratio Alpha Fetoprotein Carcinoembryonic Ag CA 15-3 Antigen CA 19-9 Antigen CA 125 Antigen Vitamin B12 Folate 08/27/17 08/27/17 06:30 06:30 WBC RBC Hgb Hct MCV MCH MCHC RDW Plt Count MPV Neut % (Auto) Lymph % (Auto) Dickson % (Auto) Eos % (Auto) Baso % (Auto) Neut # Lymph # Dickson # Eos # Baso # Retic Count APTT 86 H D Sodium 134 Potassium 3.9 Chloride 104 Carbon Dioxide 29 Anion Gap 5 L BUN 14 Creatinine 0.6 L Est GFR ( Amer) > 60 Est GFR (Non-Af Amer) > 60 Random Glucose 91 Calcium 7.7 L Ferritin Total Bilirubin 0.4 AST 23 ALT 20 Alkaline Phosphatase 58 Total Protein 5.4 L Albumin 2.6 L Globulin 2.7 Albumin/Globulin Ratio 1.0 Alpha Fetoprotein Carcinoembryonic Ag CA 15-3 Antigen CA 19-9 Antigen CA 125 Antigen Vitamin B12 Folate Critical Care Progress Note - Nutrition Nutrition: Nutrition Category Date Time Status Regular Diet [DIET] Diets 08/25/17 Lunch Active Attending/Attestation - Attestation I have personally seen and examined this patient.: Yes I have fully participated in the care of the patient.: Yes I have reviewed all pertinent clinical information: Yes Notes (Text): 08/27/17 16:17 patient seen and examined in the intensive care unit. Status post EKOS AND tpa INFUSION for extensive DVT and left common iliac vein stent placement Patient stable for transfer to floor Further workup as per PMD
--- NOTE | 2017-08-27 17:44 | CP.PCM.PN ---
Subjective - Date & Time of Evaluation Date of Evaluation: 08/27/17 Time of Evaluation: 13:00 - Subjective Subjective: Seen and examined,no complain,Her left leg swelling is getting better she wants to go home TATI.She is planning to follow her friend's primary care physician. 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 Objective - Vital Signs/Intake and Output Vital Signs (last 24 hours): Temp Pulse Resp BP Pulse Ox 98.0 F 82 22 131/70 95 08/27/17 07:30 08/27/17 14:00 08/27/17 14:00 08/27/17 14:00 08/27/17 11:00 Intake and Output: 08/27/17 08/27/17 06:59 18:59 Intake Total 895.8 290.4 Output Total 1000 0 Balance -104.2 290.4 - Medications Medications: Current Medications Apixaban (Eliquis) 10 mg PO BID [facility] Famotidine (Pepcid) 20 mg PO BID [facility] Last Admin: 08/27/17 09:23 Dose: 20 mg Vancomycin/Sodium Chloride (Vancomycin 1 Gm/Ns 200 Ml) 1 gm in 200 mls @ 200 mls/hr IVPB STAT [facility] Stop: 08/29/17 22:01 Last Admin: 08/25/17 02:11 Dose: 200 mls/hr Nicotine (Nicoderm Cq) 1 patch TD DAILY [facility] Last Admin: 08/27/17 10:00 Dose: Not Given Pneumococcal Polyvalent Vaccine (Pneumovax 23 Vaccine) 0.5 ml IM .ONCE ONE Stop: 08/28/17 10:01 - Labs Labs: 08/27/17 06:27 08/27/17 06:30 PT 13.8 SECONDS (9.7-12.2) H 08/26/17 08:47 INR 1.2 08/26/17 08:47 APTT 86 SECONDS (21-34) H D 08/27/17 06:30 - Head Exam Head Exam: NORMAL INSPECTION - Eye Exam Eye Exam: Normal appearance - ENT Exam ENT Exam: Mucous Membranes Moist - Neck Exam Neck Exam: Full ROM - Respiratory Exam Respiratory Exam: Clear to Ausculation Bilateral, NORMAL BREATHING PATTERN - Cardiovascular Exam Cardiovascular Exam: REGULAR RHYTHM - GI/Abdominal Exam GI & Abdominal Exam: Soft, Normal Bowel Sounds - Extremities Exam Extremities Exam: Full ROM - Back Exam Back Exam: NORMAL INSPECTION - Neurological Exam Neurological Exam: Awake, Oriented x3 - Psychiatric Exam Psychiatric exam: Normal Mood - Skin Skin Exam: Dry Assessment and Plan - Assessment and Plan (Free Text) Plan: 1.) Left LLE DVT - Bilateral Lower Extremity Doppler: Right: No evidence of deep or superficial vein thrombosis of the right common femoral, femoral, popliteal and great saphenous veins. Left: Totally occluding acute deep vein thrombosis of the left common femoral, extending into the saphenofemoral junction with severe reduction of venous return. Totally occluding acute deep vein thrombosis of the left proximal femoral, popliteal and gastrocnemius veins. Superficial phlebitis of the left upper great saphenous vein. Dr. Hunt help appreciated s/p Iliofemoral DVT s/p catheter directed thrombolysis Left popliteal venogram showed near complete resolution of DVT. 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 [employer] common iliac vein with a 10 mm balloon. Intravascular stent placement 14 mm x 8 cm left common iliac vein. Discussed with Dr hunt.We will do venous doppler of her left leg ,stop heparin and start on Eliquis 2.) Left Pulmonary Artery PE - CTA: Emboli in lower lobe branches of the left pulmonary artery. There is a large heterogeneous partially calcified mass in the right superior mediastinum measuring approximately 4.2 x 7.7 cm in axial dimensions possibly thyroid in origin. This may be a known finding. There are prominent lymph nodes in the anterior mediastinum measuring up to 3cm in diameter. 3.) Mediastinum Mass Concern for Malignancy Patient was seen by Dr lee oncologist this afternoon. Dr Lee's help appreciated. d/w Him ,Patient doesn't want to go for biopsy before discharge. She wants to have further work up as an out pt 4.) Prophylaxis - GI PPX: Pepcid BID - DVT PPX: SCDs ,on eliquis
[2017-08-28 06:44] LABS: BASO # 0.1 K/uL (0.0-0.2); BASO % 0.6 % (0.0-2.0); EOS # 0.4 K/uL (0.0-0.7); EOS % 4.2 % (0.0-4.0); HEMOGLOBIN 11.2 g/dL (11.0-16.0); LYMPH % 30.5 % (20.0-40.0); MEAN CELL VOLUME 85.7 fL (81.0-99.0); MEAN CORPUSCULAR HEMOGLOBIN 28.8 pg (27.0-31.0); MEAN CORPUSCULAR HGB CONC 33.6 g/dL (33.0-37.0); MEAN PLATELET VOLUME 7.9 fL (7.2-11.7); MONO # 1.1 K/uL (0.0-0.8); MONO % 11.3 % (0.0-10.0); NEUT # 5.3 K/uL (1.8-7.0); NEUT % 53.4 % (50.0-75.0); NRBC % 0.1 % (0.0-2.0); RBC 3.88 Mil/uL (3.80-5.20); RED CELL DISTRIBUTION WIDTH 14.1 % (11.5-14.5); WHITE BLOOD COUNT 9.8 K/uL (4.8-10.8)
[2017-08-28 07:05] LABS: ALBUMIN 2.9 g/dL (3.5-5.0); ALT/SGPT 18 U/L (9-52); AST/SGOT 51 U/L (14-36); BLOOD UREA NITROGEN 10 mg/dL (7-17); CALCIUM 8.5 mg/dl (8.6-10.4); GFR AFRICAN-AMERICAN > 60; GFR NON-AFRICAN AMERICAN > 60
--- NOTE | 2017-08-28 07:16 | CP.PCM.PN ---
Objective - Vital Signs/Intake and Output Vital Signs (last 24 hours): Temp Pulse Resp BP Pulse Ox 98.3 F 78 16 140/80 94 L 08/27/17 20:00 08/28/17 04:04 08/28/17 04:04 08/28/17 04:04 08/27/17 20:00 Intake and Output: 08/28/17 08/28/17 06:59 18:59 Intake Total 480 Output Total 350 Balance 130 - Medications Medications: Current Medications Apixaban (Eliquis) 10 mg PO BID [facility] Last Admin: 08/27/17 17:57 Dose: 10 mg Famotidine (Pepcid) 20 mg PO BID [facility] Last Admin: 08/27/17 17:58 Dose: 20 mg Vancomycin/Sodium Chloride (Vancomycin 1 Gm/Ns 200 Ml) 1 gm in 200 mls @ 200 mls/hr IVPB STAT [facility] Stop: 08/29/17 22:01 Last Admin: 08/25/17 02:11 Dose: 200 mls/hr Nicotine (Nicoderm Cq) 1 patch TD DAILY [facility] Last Admin: 08/27/17 10:00 Dose: Not Given Pneumococcal Polyvalent Vaccine (Pneumovax 23 Vaccine) 0.5 ml IM .ONCE ONE Stop: 08/28/17 10:01 - Labs Labs: 08/28/17 06:36 08/28/17 06:36 PT 13.8 SECONDS (9.7-12.2) H 08/26/17 08:47 INR 1.2 08/26/17 08:47 APTT 86 SECONDS (21-34) H D 08/27/17 06:30
[2017-08-28] MEDS ORDERED: Pneumococcal 23-Valent Vaccine IM ONE (10:00)
[2017-08-28] MEDS ORDERED: Influenza Vaccine 60 mcg/0.5 mL SYR (4YR UP) IM ONE (10:00)
--- NOTE | 2017-08-28 12:39 | CARD ---
APPROVED REPORT EXAM: Two-dimensional and M-mode echocardiogram with Doppler and color Doppler. Other Information Quality : Good[employer] : INDICATION Pulmonary Embolism 2D DIMENSIONS IVSd1.1 (0.7-1.1cm)LVDd5.0 (3.9-5.9cm) PWd1.2 (0.7-1.1cm)LVDs2.6 (2.5-4.0cm) FS (%) 47.8 %LVEF (%)79.0 (>50%) M-Mode DIMENSIONS Left Atrium (MM)4.18 (2.5-4.0cm)Aortic Root3.64 (2.2-3.7cm) Aortic Cusp Exc.2.19 (1.5-2.0cm) Mitral Valve MV E Onuddpvc01.5cm/sMV A Yaovmnvr18.4cm/sE/A ratio0.9 TDI E/Lateral E'0.0E/Medial E'0.0 Tricuspid Valve TR Peak Fivjphho095ii/sTR Peak Gr.[id number] LEFT VENTRICLE The left ventricle is normal size. There is borderline concentric left ventricular hypertrophy. The left ventricular function is normal. The left ventricular ejection fraction is within the normal range. There is normal LV segmental wall motion. Transmitral Doppler flow pattern is Grade I-abnormal relaxation pattern. No left ventricle thrombus noted on this study. There is no ventricular septal defect visualized. There is no left ventricular aneurysm. There is no mass noted in the left ventricle. RIGHT VENTRICLE The right ventricle is normal size. There is normal right ventricular wall thickness. The right ventricular systolic function is normal. ATRIA The left atrium is borderline dilated. The right atrium size is normal. The interatrial septum is intact with no evidence for an atrial septal defect. AORTIC VALVE The aortic valve is normal in structure. No aortic regurgitation is present. There is no aortic valvular stenosis. There is no aortic valvular vegetation. MITRAL VALVE The mitral valve is normal in structure. There is no evidence of mitral valve prolapse. There is no mitral valve stenosis. There is no mitral valve regurgitation noted. TRICUSPID VALVE The tricuspid valve is normal in structure. There is mild pulmonary hypertension. PULMONIC VALVE The pulmonary valve is normal in structure. There is no pulmonic valvular regurgitation. GREAT VESSELS The aortic root is normal in size. The ascending aorta is normal in size. The pulmonary artery is normal. The IVC is normal in size and collapses >50% with inspiration. PERICARDIAL EFFUSION There is no pericardial effusion. <Conclusion> There is borderline concentric left ventricular hypertrophy. Transmitral Doppler flow pattern is Grade I-abnormal relaxation pattern. The left atrium is borderline dilated. There is mild pulmonary hypertension. LVEF IS 75%.
[2017-08-28 12:50] VITALS: TEMP 98.4
--- NOTE | 2017-08-28 14:37 | CP.PCM.DIS ---
Provider - Provider Date of Admission: 08/24/17 21:46 Attending physician: Carlos Hernandez MD Time Spent in preparation of Discharge (in minutes): 40 Hospital Course - Lab Results Lab Results: Micro Results 08/24/17 21:30 Blood Blood Culture - Preliminary NO GROWTH AFTER 3 DAYS 08/24/17 22:26 Blood Blood Culture - Preliminary NO GROWTH AFTER 3 DAYS 08/25/17 Unknown Naris MRSA Culture (Admit) - Final MRSA NOT DETECTED Most Recent Lab Values WBC 9.8 K/uL (4.8-10.8) 08/28/17 06:36 RBC 3.88 Mil/uL (3.80-5.20) 08/28/17 06:36 Hgb 11.2 g/dL (11.0-16.0) 08/28/17 06:36 Hct 33.2 % (34.0-47.0) L 08/28/17 06:36 MCV 85.7 fL (81.0-99.0) 08/28/17 06:36 MCH 28.8 pg (27.0-31.0) 08/28/17 06:36 MCHC 33.6 g/dL (33.0-37.0) 08/28/17 06:36 RDW 14.1 % (11.5-14.5) 08/28/17 06:36 Plt Count 396 K/uL (130-400) 08/28/17 06:36 MPV 7.9 fL (7.2-11.7) 08/28/17 06:36 Neut % (Auto) 53.4 % (50.0-75.0) 08/28/17 06:36 Lymph % (Auto) 30.5 % (20.0-40.0) 08/28/17 06:36 [place] % (Auto) 11.3 % (0.0-10.0) H 08/28/17 06:36 Eos % (Auto) 4.2 % (0.0-4.0) H 08/28/17 06:36 Baso % (Auto) 0.6 % (0.0-2.0) 08/28/17 06:36 Neut # 5.3 K/uL (1.8-7.0) 08/28/17 06:36 Lymph # 3.0 K/uL (1.0-4.3) 08/28/17 06:36 [place] # 1.1 K/uL (0.0-0.8) H 08/28/17 06:36 Eos # 0.4 K/uL (0.0-0.7) 08/28/17 06:36 Baso # 0.1 K/uL (0.0-0.2) 08/28/17 06:36 Retic Count 1.4 % (0.5-1.5) 08/26/17 16:33 PT 13.8 SECONDS (9.7-12.2) H 08/26/17 08:47 INR 1.2 08/26/17 08:47 APTT 86 SECONDS (21-34) H D 08/27/17 06:30 D-Dimer, Quantitative 6329 ng/mlDDU (0-243) H 08/24/17 19:51 Sodium 134 mmol/L (132-148) 08/28/17 06:36 Potassium 4.5 mmol/L (3.6-5.2) 08/28/17 06:36 Chloride 104 mmol/L (98-107) 08/28/17 06:36 Carbon Dioxide 28 mmol/L (22-30) 08/28/17 06:36 Anion Gap 8 (10-20) L 08/28/17 06:36 BUN 10 mg/dL (7-17) 08/28/17 06:36 Creatinine 0.6 mg/dL (0.7-1.2) L 08/28/17 06:36 Est GFR ( Amer) > 60 08/28/17 06:36 Est GFR (Non-Af Amer) > 60 08/28/17 06:36 Random Glucose 85 mg/dL (65-105) 08/28/17 06:36 Hemoglobin A1c 6.1 % (4.2-6.5) 08/25/17 07:50 Calcium 8.5 mg/dl (8.6-10.4) L 08/28/17 06:36 Ferritin 288.0 ng/mL 08/26/17 16:33 Total Bilirubin 0.6 mg/dL (0.2-1.3) 08/28/17 06:36 AST 51 U/L (14-36) H D 08/28/17 06:36 ALT 18 U/L (9-52) 08/28/17 06:36 Alkaline Phosphatase 49 U/L (38-126) 08/28/17 06:36 Total Protein 5.8 g/dL (6.3-8.3) L 08/28/17 06:36 Albumin 2.9 g/dL (3.5-5.0) L 08/28/17 06:36 Globulin 2.9 gm/dL (2.2-3.9) 08/28/17 06:36 Albumin/Globulin Ratio 1.0 (1.0-2.1) 08/28/17 06:36 Triglycerides 68 mg/dL (0-149) 08/25/17 07:50 Cholesterol 107 mg/dL (0-199) 08/25/17 07:50 LDL Cholesterol Direct 68 mg/dL (0-129) 08/25/17 07:50 HDL Cholesterol 26 mg/dL (30-70) L 08/25/17 07:50 Alpha Fetoprotein 0.9 ng/mL (0.0-7.5) 08/26/17 16:33 Carcinoembryonic Ag 0.8 ng/mL (0-3.0) 08/26/17 16:33 CA 15-3 Antigen 16.1 U/mL (0-35) 08/26/17 16:33 CA 19-9 Antigen 5.3 U/mL (0-37) 08/26/17 16:33 CA 125 Antigen < 5.5 U/mL (0-35) 08/26/17 16:33 Vitamin B12 304 pg/mL (239-931) 08/26/17 16:33 Folate 9.5 ng/mL 08/26/17 16:33 Thyroxine (T4) 8.75 ug/dL (5.5-11.0) 08/26/17 07:04 TSH 3rd Generation 0.58 mIU/L (0.46-4.68) 08/26/17 07:04 - Hospital Course Hospital Course: HPI: 67 yo Female with no significant PMHx presents to the ED with left leg pain x 1 week. Patient reports traveling to [place] August 18 and returned the . 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 She started to experience the left leg pain a day or so after her initial flight. The redness and swelling of her leg started to increase the up the leg, and became worse when she returned from [place]. She would take motrin as needed for pain, but the swelling and redness of her leg did not resolve. Denied fever, chills, headache, chest pain, SOB, abdominal pain, n/v/d/c, or urinary symptoms. 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 Patient's D-dimer was elevated to 6329. LE Doppler showed no evidence of deep or superficial vein thrombosis of right common femoral, femoral, popliteal and great saphenous veins, but did show totally occluding acute DVT of left common femoral, extending into the saphenofemoral junction with severe reduction of venous return along with totally occluding acute DVT of left proximal femoral, popliteal and gastrocnemius veins. Doppler also showed superficial phlebitis of left upper great saphenous vein. Patient received therapeutic Lovenox that was switched to a heparin drip due to newly diagnosed PE. IR (Dr. Hunt) was consulted for EKOS procedure. Patient received catheter directed thrombolysis (08/25/17) and left popliteal venogram showed near complete resolution of DVT with no residual thrombus. Intravascular stent 14 mm x 8 cm placed in left common iliac vein. IVC filter placed on 08/25/17. Patient's leg pain has resolved. Patient started on Eliquis 10 mg po BID. Patient to follow up with PMD. 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 Patient was seen by Dr. Lee (oncologist), but patient refused to go for biopsy before discharge. Patient stated that she will follow up for the mediastinum mass as an outpatient. Patient's echocardiogram on 08/28/17 showed borderline concentric left ventricular hypertrophy. Left atrium borderline dilated. Mild pulmonary hypertension. LVEF 75%. Transmitral Doppler flow pattern of Grade I-abnormal relaxation pattern. Spoke with Dr. Hunt and he stated patient was stable for discharge and to follow up with him in about 1 month. This is a summary of patient's hospital course, please see chart for full details. Patient stable for discharge per Dr. Hernandez and Dr. Hunt. Patient to continue taking new medication: Eliquis 10mg twice per day Patient to follow up with primary care doctor within one week. Patient to follow up with oncologist Dr. Lee within 2 weeks. Please call to make an appointment: [phone] Patient to follow up with interventional radiologist Dr. Hunt in one month. Please return to the emergency room if symptoms return or worsen. Discharge Exam - Head Exam Head Exam: NORMAL INSPECTION - Eye Exam Eye Exam: EOMI, Normal appearance - ENT Exam ENT Exam: Mucous Membranes Moist - Respiratory Exam Respiratory Exam: Clear to PA & Lateral, NORMAL BREATHING PATTERN. absent: Rales, Rhonchi, Wheezes - Cardiovascular Exam Cardiovascular Exam: REGULAR RHYTHM, +S1, +S2 - GI/Abdominal Exam GI & Abdominal Exam: Normal Bowel Sounds, Soft. absent: Tenderness - Extremities Exam Extremities exam: pedal edema (left lower extremity) - Neurological Exam Neurological exam: Alert, Oriented x3 - Psychiatric Exam Psychiatric exam: Normal Affect, Normal Mood - Skin Skin Exam: Dry, Intact, Warm Discharge Plan - Discharge Medications Prescriptions: Apixaban [Eliquis] 10 mg PO BID #60 tab - Follow Up Plan Condition: GOOD Disposition: HOME/ ROUTINE Instructions: Apixaban (By mouth), Pulmonary Embolism (DC), Pulmonary Embolism (GEN), How to Stop Smoking (DC), Pneumococcal Vaccine for Adults (DC), Heart Healthy Diet (DC), Cigarette Smoking and Your Health (GEN), Deep Venous Thrombosis (DC), Deep Venous Thrombosis (GEN), Influenza Vaccine (DC), Peripheral Vascular Disease (DC), Inferior Vena Cava Filter Placement (DC) Additional Instructions: Please follow up with primary doctor within one week from today. Please follow up with Dr. Lee (oncologist) within 2 weeks from today - call to make an appointment [phone] Please follow up with Dr. Hunt within one month [phone]. If symptoms return or get worse, or experiencing sudden shortness of breath - call 911 or go to the nearest Emergency Room immediately.
--- NOTE | 2017-08-28 14:49 | VASCLAB ---
PROCEDURE: Lower Extremity Venous Duplex Exam. HISTORY: DVT,s/p Ekos PRIORS: 08/25/2017, abnormal. TECHNIQUE: Bilateral common femoral, femoral, popliteal and posterior tibial, peroneal and great saphenous veins were evaluated. Flow was assessed with color Doppler, compressibility, assessment of phasic flow and augmentation response. Report prepared by SON Dorsey FINDINGS: RIGHT: 1. Common Femoral Vein: 1.1. Compressibility - Fully compressible: Thrombus - None : Flow - Phasic: Augmentation -Normal: Reflux - None. 2. Femoral Vein: 2.1. Compressibility - Fully compressible: Thrombus - None : Flow - Phasic: Augmentation -Normal: Reflux - None. 3. Popliteal Vein: 3.1. Compressibility - Fully compressible: Thrombus - None : Flow - Phasic: Augmentation -Normal: Reflux - None. 4. Posterior Tibial Vein: 4.1. Compressibility - Fully compressible: Thrombus - None: Flow - Phasic: Augmentation -Normal: Reflux - None. 5. Peroneal Vein: 5.1. Not visualized due to swelling. 6. Great Saphenous Vein: 6.1. Compressibility - Fully compressible: Thrombus - None: Flow - Phasic: Augmentation - Normal: Reflux - None. LEFT: 1. Common Femoral Vein: 1.1. Compressibility - Fully compressible: Thrombus - None: Flow - Phasic: Augmentation -Normal: Reflux - None. 2. Femoral Vein: 2.1. Compressibility - Fully compressible: Thrombus - None: Flow - Phasic: Augmentation -Normal: Reflux - None. 3. Popliteal Vein: 3.1. Compressibility - Fully compressible: Thrombus - None : Flow - Phasic: Augmentation -Normal: Reflux - None. 4. Posterior Tibial Vein: 4.1. Not visualized due to swelling. 5. Peroneal Vein: 5.1. Not visualized due to swelling. 6. Great Saphenous Vein: (Upper not compressible) 6.1. Compressibility - Incompressible: Thrombus - Acute: Flow - Absent : Augmentation - Normal: Reflux - None. OTHER FINDINGS: Right: Unable to clearly image the peroneal veins, due to swelling. The remaining veins in the right lower extremity are compressible. Left: Unable to clearly image the posterior tibial and peroneal veins, due to swelling. IMPRESSION: Right: No evidence of deep or superficial vein thrombosis of the right lower extremity. Normal valve function noted of the right side. Left: Significant improvement with no residual thrombus in the left common femoral, superficial femoral, and popliteal veins. Superficial phlebitis of the left great saphenous vein, at the thigh level. Wall thickening is noted of the left common femoral, femoral and popliteal veins.
[2017-08-28 16:06] VITALS: BP 149/49; PULSE 77; RESP 12
--- NOTE | 2017-08-28 17:27 | CP.PCM.PN ---
Subjective - Date & Time of Evaluation Date of Evaluation: 08/27/17 Time of Evaluation: 19:00 - Subjective Subjective: Feeling better Objective - Vital Signs/Intake and Output Vital Signs (last 24 hours): Temp Pulse Resp BP Pulse Ox 98.4 F 77 12 149/49 L 96 08/28/17 12:00 08/28/17 15:21 08/28/17 15:21 08/28/17 15:21 08/28/17 12:00 Intake and Output: 08/28/17 08/28/17 06:59 18:59 Intake Total 480 400 Output Total 350 650 Balance 130 -250 - Labs Labs: 08/28/17 06:36 08/28/17 06:36 PT 13.8 SECONDS (9.7-12.2) H 08/26/17 08:47 INR 1.2 08/26/17 08:47 APTT 86 SECONDS (21-34) H D 08/27/17 06:30 - Head Exam Head Exam: ATRAUMATIC - Eye Exam Eye Exam: Normal appearance - ENT Exam ENT Exam: Mucous Membranes Dry - Respiratory Exam Respiratory Exam: NORMAL BREATHING PATTERN - Cardiovascular Exam Cardiovascular Exam: +S1, +S2 - GI/Abdominal Exam GI & Abdominal Exam: Normal Bowel Sounds - Extremities Exam Extremities Exam: Pedal Edema Assessment and Plan (1) Pulmonary embolism on left Assessment & Plan: with DVT s/p catheter directed thrombolysis and IVC filter on anticoagulation Status: Acute (2) 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
--- NOTE | 2017-08-28 17:29 | CP.PCM.PN ---
Subjective - Date & Time of Evaluation Date of Evaluation: 08/28/17 Time of Evaluation: 12:00 - Subjective Subjective: Feeling better Objective - Vital Signs/Intake and Output Vital Signs (last 24 hours): Temp Pulse Resp BP Pulse Ox 98.4 F 77 12 149/49 L 96 08/28/17 12:00 08/28/17 15:21 08/28/17 15:21 08/28/17 15:21 08/28/17 12:00 Intake and Output: 08/28/17 08/28/17 06:59 18:59 Intake Total 480 400 Output Total 350 650 Balance 130 -250 - Labs Labs: 08/28/17 06:36 08/28/17 06:36 PT 13.8 SECONDS (9.7-12.2) H 08/26/17 08:47 INR 1.2 08/26/17 08:47 APTT 86 SECONDS (21-34) H D 08/27/17 06:30 - Head Exam Head Exam: ATRAUMATIC - Eye Exam Eye Exam: Normal appearance - ENT Exam ENT Exam: Mucous Membranes Dry - Respiratory Exam Respiratory Exam: NORMAL BREATHING PATTERN - Cardiovascular Exam Cardiovascular Exam: +S1, +S2 - GI/Abdominal Exam GI & Abdominal Exam: Normal Bowel Sounds - Extremities Exam Extremities Exam: Pedal Edema Assessment and Plan (1) Pulmonary embolism on left Assessment & Plan: with LE DVT s/p cathter directed thrombolysis and IVC filter therapeutic anticoagulation Status: Acute (2) Mediastinal mass Assessment & Plan: with liver lesion declined biopsy outpatient PET CT scan Status: Acute (3) Anemia Assessment & Plan: chronic disease Status: Acute (4) Coagulopathy Assessment & Plan: anticoagulation Status: Acute
[2017-08-28 23:13] VITALS: O2SAT 98
--- NOTE | 2017-08-29 11:16 | CARD ---
APPROVED REPORT EKG Measurement Heart [id number] <Conclusion> Normal sinus rhythm Normal ECG
== END 2017-08-28 15:50 | disposition home or self-care (01) | DRG 252 ==
LOC: C.ER 19:10 → C.9E 21:46 → C.3T 22:09 → C.5S 08-25 02:13 → C.9I 08-25 10:45
PROVIDERS: ADMIT Internal Medicine; ATTEND Internal Medicine
PROC: 06H03DZ Insertion of Intraluminal Device into Inferior Vena Cava, Percutaneous Approach (ICD-10-PCS; principal; 2017-08-25)
PROC: 3E03317 Introduction of Other Thrombolytic into Peripheral Vein, Percutaneous Approach (ICD-10-PCS; 2017-08-26)
PROC: 067D3ZZ Dilation of Left Common Iliac Vein, Percutaneous Approach (ICD-10-PCS; 2017-08-26)
DX: I74.3 Embolism and thrombosis of arteries of the lower extremities (principal); J98.59 Other diseases of mediastinum, not elsewhere classified; I26.99 Other pulmonary embolism without acute cor pulmonale; I82.412 Acute embolism and thrombosis of left femoral vein; I87.1 Compression of vein; I82.422 Acute embolism and thrombosis of left iliac vein; I27.20 Pulmonary hypertension, unspecified; I80.9 Phlebitis and thrombophlebitis of unspecified site; F17.210 Nicotine dependence, cigarettes, uncomplicated; D64.9 Anemia, unspecified